=== PATIENT | male | born 1975 | race Hispanic/Latino ===

== ENCOUNTER 2017-08-06 16:53 | Inpatient (IN) | payer OTHER ==
[2017-08-06 17:04] VITALS: BMI 18.6
[2017-08-06] MEDS ORDERED: Morphine 4 MG/ML VIAL ONE (17:37)
[2017-08-06] MEDS ORDERED: Sodium Chloride 0.9% 1,000 ML IV ONE (17:40)
[2017-08-06] MEDS ORDERED: Morphine 4 MG/ML VIAL IVP ONE (17:44)
[2017-08-06] MEDS ORDERED: Sodium Chloride 0.9% 1,000 ML ONE (17:47)
[2017-08-06 17:50] LABS: BASO # 0.1 K/uL (0.0-0.2); BASO % 1.3 % (0.0-2.0); EOS # 0.1 K/uL (0.0-0.7); EOS % 0.9 % (0.0-4.0); LYMPH # 1.8 K/uL (1.0-4.3); LYMPH % 26.6 % (20.0-40.0); MEAN CORPUSCULAR HEMOGLOBIN 32.7 pg (27.0-31.0); MEAN PLATELET VOLUME 6.5 fL (7.2-11.7); MONO # 0.7 K/uL (0.0-0.8); MONO % 9.7 % (0.0-10.0); RED CELL DISTRIBUTION WIDTH 13.1 % (11.5-14.5); WHITE BLOOD COUNT 6.9 K/uL (4.8-10.8)
[2017-08-06 18:00] LABS: CHLORIDE 100 mmol/L (98-107); SODIUM 135 mmol/L (132-148)
--- NOTE | 2017-08-06 18:00 | RAD ---
PROCEDURE: CHEST RADIOGRAPH, 1 VIEW HISTORY: Seizure COMPARISON: None available. FINDINGS: LUNGS: The lungs are well inflated and clear. PLEURA: No pneumothorax or pleural fluid seen. CARDIOVASCULAR: Normal. OSSEOUS STRUCTURES: There is diffuse bone demineralization. There are old fracture deformities in the right posterior 6th and 7th ribs. VISUALIZED UPPER ABDOMEN: Normal. OTHER FINDINGS: None. IMPRESSION: No acute findings.
[2017-08-06 18:01] LABS: POTASSIUM 4.2 mmol/L (3.6-5.2)
[2017-08-06 18:03] LABS: ALB/GLOB RATIO 1.9 (1.0-2.1); ALKALINE PHOSPHATASE 69 U/L (38-126); AST/SGOT 62 U/L (17-59); BILIRUBIN,TOTAL 0.7 mg/dL (0.2-1.3); BLOOD UREA NITROGEN 6 mg/dL (9-20); CARBON DIOXIDE 14 mmol/L (22-30); GFR AFRICAN-AMERICAN > 60; TOTAL PROTEIN 7.1 g/dL (6.3-8.3)
[2017-08-06 18:04] LABS: ALCOHOL SERUM < 10 mg/dl (0-10); ALT/SGPT 58 U/L (21-72); CALCIUM 9.2 mg/dl (8.6-10.4); GLUCOSE,RANDOM 129 mg/dL (75-110)
[2017-08-06] MEDS ORDERED: Lidocaine 2% w Epi 1:100,000 Inj IJ ONE (18:04)
--- NOTE | 2017-08-06 18:05 | C.PDOC ---
History Of Present Illness 42 year old male who presents to the ER after having a seizure at work today. Patient states he has seizures monthly and note they always happened after drinking. Patient reports he drinks 4-6 beers per day and states he has tried "all antiseizure medication" but cannot tolerate any of them. Patient has had multiple evaluations for seizures and facial trauma, usually at [place]. Patient states he was drinking heavily prior to his seizure and notes he had a typical belief dejavu sensation before the seizure began. Denies nausea, vomiting, or headache. Time Seen by Provider: 08/06/17 17:07 Chief Complaint (Nursing): Seizure History Per: Patient History/Exam Limitations: no limitations Recent Seizure Activity Began: Just Before Arrival Number Of Seizures: One Length Of Seizures (Duration): Seconds Quality Of Seizure: Generalized Post-ictal Period: No Recent travel outside of the [place]: No Past Medical History Reviewed: Historical Data, Nursing Documentation, Vital Signs Vital Signs: Last Vital Signs Temp 97.6 F 08/06/17 19:36 Pulse 96 H 08/06/17 19:36 Resp 18 08/06/17 19:36 BP 111/73 08/06/17 19:36 Pulse Ox 97 08/06/17 21:33 - Medical History PMH: Seizures Surgical History: Tonsillectomy Family History: States: Unknown Family Hx - Social History Hx Alcohol Use: Yes Hx Substance Use: Yes (FREQUENT MARIJUANA USE,OCCASIONAL COCAINE USE) Review Of Systems Constitutional: Negative for: Fever, Chills Gastrointestinal: Negative for: Nausea, Vomiting Skin: Positive for: Other (Abrasions) Neurological: Positive for: Seizures. Negative for: Headache, Dizziness Physical Exam - Physical Exam Appears: Non-toxic, Other (Small stature, very thin) Skin: Warm, Dry Head: Laceration (3cm to right upper eyebrow), Other (1x1 skin avulsion to lateral aspect of right eye lid) Eye(s): bilateral: Normal Inspection Ear(s): Bilateral: Normal Oral Mucosa: Moist Chest: Symmetrical, No Tenderness Cardiovascular: Rhythm Regular, No Murmur Respiratory: Normal Breath Sounds, No Rales, No Rhonchi, No Wheezing Gastrointestinal/Abdominal: Soft, No Tenderness Extremity: Normal ROM (x4), Other (Superficial abrasions to knuckles) Neurological/Psych: Oriented x3, Normal Speech, Normal Cognition ED Course And Treatment - Laboratory Results Result Diagrams: 08/06/17 17:45 08/06/17 17:45 Lab Interpretation: Normal (neg all seizure meds.) ECG: Interpreted By Me ECG Rhythm: Sinus Rhythm ECG Interpretation: Normal Rate From EC O2 Sat by Pulse Oximetry: 97 Pulse Ox Interpretation: Normal - Radiology CXR: Interpreted by Me CXR Interpretation: Yes: No Acute Disease - CT Scan/US CT Head Other Rad Studies (CT/US): Read By Radiologist, Radiology Report Reviewed CT/US Interpretation: IMPRESSION: 1. Small parenchymal hematoma in the left frontal lobe. It appears slightly larger normal examination. done 2 hours ago. 2. Air-fluid levels noted within the maxillary sinuses bilaterally. Mucosal thickening extending into the. ethmoid and frontal sinuses. Air-fluid levels are could be due to the recent trauma. Findings suggest. underlying chronic sinus disease that could include nasal polyposis. 3. Soft tissue swelling noted over the right frontal bone. 4. Fractures demonstrated on previous CT of the maxillofacial bones not clearly seen on this. examination. CT Maxillofacial Other Rad Studies (CT/US): Read By Radiologist, Radiology Report Reviewed CT/US Interpretation: IMPRESSION: 1. Depressed fracture of the anterior wall of the right maxillary sinus with fracture involving the medial. and posterior romero of the right maxillary sinus as well. 2.Fracture of the anterior nasal spine of the maxilla. 3.Air-fluid levels noted within the maxillary sinuses bilaterally with thinning of the medial wall of the. maxillary sinuses. While these findings could be due to trauma, the thinning of the medial wall of the. maxillary sinuses bilaterally raises the possibility of underlying chronic sinus disease and nasal. polyposis. 4. Simple linear fracture through the lateral pterygoid plate on the left. 5. Mucosal thickening noted with in the frontal, ethmoid, and maxillary sinuses. 6. Gyriform hyperdensity noted within the left frontal lobe. This could represent an area of petechial. hemorrhage. Followup CT examination in 4-6 hours or MRI suggested Progress Note: EKG, urinalysis, blood work, CT head, and CT maxillofacial ordered. Ativan, Morphine, zofran, and IV fluids administered. Reevaluation Time: 21:29 Reassessment Condition: Improved - Physician Consult Information Outcome Of Conversation: 2000: d/w Dr. Stark- [facility] ok to Admit Laceration - Laceration Repair Right upper eyebrow Wound Length (In cm): 3 Description Of Wound: Linear Wound Cleansed With: Betadine, Sterile Saline Anesthesia: Lidocaine 2%, With Epi Wound Examination: Irrigated With Saline (Liberally) Wound Closure: Suture (Two) Suture Technique And Material Used: Nylon (4-0) Wound Complexity: Simple Medical Decision Making Medical Decision Making: recurrent seizure, usually with brief prodrome of robbie vu' and usually with fall from standing to impace the face. Today R nasal spine and R maxillary fx's with typical SQ air and R eyebrow lac, and small L Frontal parenchymal bleed. h/o MRSA, started on [facility] admit [facility] Disposition Doctor Will See Patient In The: Hospital Counseled Patient/Family Regarding: Studies Performed, Diagnosis - Disposition Disposition: HOME/ ROUTINE Disposition Time: 21:32 Condition: GOOD - Clinical Impression Clinical Impression: Tonic-clonic seizure, Facial fracture due to fall, Eyebrow laceration, Punctate hemorrhage of left frontal lobe - Scribe Statement The provider has reviewed the documentation as recorded by the Scribmichelle Ahuja All medical record entries made by the Scribe were at my direction and personally dictated by me. I have reviewed the chart and agree that the record accurately reflects my personal performance of the history, physical exam, medical decision making, and the department course for this patient. I have also personally directed, reviewed, and agree with the discharge instructions and disposition.
[2017-08-06 18:06] LABS: CARBAMAZEPINE < 3.0 ug/mL (4.0-12.0)
[2017-08-06 18:08] LABS: VALPROIC ACID < 10.0 ug/mL (50.0-100.0)
--- NOTE | 2017-08-06 20:42 | CT ---
EXAM: CT Maxillofacial Without Intravenous Contrast EXAM DATE/TIME: Exam ordered 08/06/2017 6:02 PM CLINICAL HISTORY: 42 years old, male; Injury or trauma and signs and symptoms; Fall; Initial encounter; Blunt trauma (contusions or hematomas); Orbit/periorbital and maxilla; Right; Other: Laceration and swelling rf facial area; Patient HX: Post seizure; Additional info: R facial contusion, S/P seizure, ? orbig/zytom TECHNIQUE: Axial computed tomography images of the face without intravenous contrast. All CT scans at this facility use one or more dose reduction techniques, viz.: automated exposure control; ma/kV adjustment per patient size (including targeted exams where dose is matched to indication; i.e. head); or iterative reconstruction technique. Coronal and sagittal reformatted images were created and reviewed. COMPARISON: No relevant prior studies available. FINDINGS: Bones/joints: There is a fracture of the medial and posterior wall of the right maxillary sinus. There is a simple linear fracture through the lateral pterygoid plate on the left. There's a depressed fracture of the anterior wall of the right maxillary sinus. Subcutaneous emphysema is noted within the pre-maxillary soft tissues. There is a fracture noted of the anterior nasal spine. There is a left-sided danny bullosa. Soft tissues: Soft tissue swelling is noted over the right frontal bone. Soft tissue swelling is noted of the right preseptal soft tissues. Orbits: Unremarkable. Sinuses: There is an air-fluid level within the left maxillary sinus. There is opacification of the right maxillary sinus with air-fluid level noted. There appears to be thinning within the medial wall of the maxillary sinuses bilaterally which could reflect underlying nasal polyposis. Soft tissue thickening is noted within the ethmoid air cells bilaterally. Soft tissue thickening extends into the frontal sinuses bilaterally. Brain: A focal area of gyriform hyperdensity is noted in the left frontal lobe (series 3 image 110). Nasopharynx: There is rightward deviation of the nasal septum. IMPRESSION: 1. Depressed fracture of the anterior wall of the right maxillary sinus with fracture involving the medial and posterior romero of the right maxillary sinus as well. 2.Fracture of the anterior nasal spine of the maxilla 3.Air-fluid levels noted within the maxillary sinuses bilaterally with thinning of the medial wall of the maxillary sinuses. While these findings could be due to trauma, the thinning of the medial wall of the maxillary sinuses bilaterally raises the possibility of underlying chronic sinus disease and nasal polyposis. 4. Simple linear fracture through the lateral pterygoid plate on the left 5. Mucosal thickening noted with in the frontal, ethmoid, and maxillary sinuses. 6. Gyriform hyperdensity noted within the left frontal lobe. This could represent an area of petechial hemorrhage. Followup CT examination in 4-6 hours or MRI suggested
--- NOTE | 2017-08-06 21:39 | CT ---
EXAM: CT Head Without Intravenous Contrast EXAM DATE/TIME: Exam ordered 08/06/2017 8:48 PM CLINICAL HISTORY: 42 years old, male; Signs and symptoms; Syncope and collapse and other: Seizure; Additional info: Fall on face, + puntate bleed frontal noted on max TECHNIQUE: Axial computed tomography images of the head/brain without intravenous contrast. All CT scans at this facility use one or more dose reduction techniques, viz.: automated exposure control; ma/kV adjustment per patient size (including targeted exams where dose is matched to indication; i.e. head); or iterative reconstruction technique. COMPARISON: No relevant prior studies available. FINDINGS: Brain: There is a small parenchymal hematoma in the left frontal lobe measuring 0.8 x 0.8 transverse and AP located just anterior to the sylvian fissure. It is slightly more conspicuous than when demonstrated on the CT of the maxillofacial bones approximately 2 hours earlier. No edema. Ventricles: Unremarkable. No ventriculomegaly. Bones/joints: A bony defect is suggested on the medial wall of the maxillary sinuses bilaterally. The fractures of the right maxillary sinus which were demonstrated on a previous exam of the maxillofacial bones are not clearly seen on this study. Soft tissues: There is a swelling of the soft tissues overlying the right frontal bone. Sinuses: There is a air-fluid level the left maxillary sinus. There is opacification of of the right maxillary sinus. Partial soft tissue opacification extends into the ethmoid air cells and the frontal sinuses. Mastoid air cells: Unremarkable as visualized. No mastoid effusion. IMPRESSION: 1. Small parenchymal hematoma in the left frontal lobe. It appears slightly larger normal examination done 2 hours ago. 2. Air-fluid levels noted within the maxillary sinuses bilaterally. Mucosal thickening extending into the ethmoid and frontal sinuses. Air-fluid levels are could be due to the recent trauma. Findings suggest underlying chronic sinus disease that could include nasal polyposis 3. Soft tissue swelling noted over the right frontal bone. 4. Fractures demonstrated on previous CT of the maxillofacial bones not clearly seen on this examination. Images were attached to this report and are available at [email or web address]
[2017-08-06 22:20] LABS: RBC URINE < 1 /hpf (0-3); URINE BILIRUBIN NEGATIVE (NEGATIVE); URINE BLOOD NEGATIVE (NEGATIVE); URINE COLOR Straw (YELLOW); URINE GLUCOSE (UA) NORMAL (Normal); URINE KETONE 1+ mg/dL (NEGATIVE); URINE LEUKOCYTE ESTERASE NEG Leu/uL (Negative); URINE PROTEIN NEGATIVE (NEGATIVE); URINE UROBILINOGEN NORMAL mg/dL (0.2-1.0); WBC URINE < 1 /hpf (0-5)
[2017-08-06] MEDS ORDERED: Bacitracin 500 Units/gm Oint Foilpak UD TOP ONE (23:27)
[2017-08-07] MEDS ORDERED: Thiamine 100 mg/ml Inj IV ONE (00:40)
[2017-08-07] MEDS: Clindamycin 300 MG in Sodium Chloride 0.9% 50 ML IVPB SCH ×4 (01:48→18:45)
--- NOTE | 2017-08-07 05:47 | CP.PCM.HP ---
<Clint Stark P - Last Filed: 08/07/17 08:25> Meds Allergies/Adverse Reactions: Allergies Allergy/AdvReac Type Severity Reaction Status Date / Time acetaminophen [From Tylenol] Allergy RASH Verified 08/06/17 17:00 amoxicillin Allergy NAUSEA Verified 08/06/17 17:00 ampicillin Allergy RASH Verified 08/06/17 17:00 erythromycin base Allergy URTICARIA Verified 08/06/17 17:00 Results - Vital Signs Recent Vital Signs: Last Vital Signs Temp 99.0 F 08/07/17 00:20 Pulse 91 H 08/07/17 00:20 Resp 20 08/07/17 00:20 BP 125/79 08/07/17 00:20 Pulse Ox 97 08/07/17 00:20 - Labs Result Diagrams: 08/06/17 17:45 08/06/17 17:45 Labs: Laboratory Results - last 24 hr 08/06/17 08/06/17 22:11 22:11 Urine Color Straw Urine Clarity Clear Urine pH 6.0 Ur Specific [place] 1.010 Urine Protein Negative Urine Glucose (UA) Normal Urine Ketones 1+ H Urine Blood Negative Urine Nitrate Negative Urine Bilirubin Negative Urine Urobilinogen Normal Ur Leukocyte Esterase Neg Urine WBC (Auto) < 1 Urine RBC (Auto) < 1 Urine Opiates Screen Positive Urine Methadone Screen Negative Ur Barbiturates Screen Negative Ur Phencyclidine Scrn Negative Ur Amphetamines Screen Negative U Benzodiazepines Scrn Negative U Oth Cocaine Metabols Negative U Cannabinoids Screen Negative Attending/Attestation - Attestation I have personally seen and examined this patient.: Yes I have fully participated in the care of the patient.: Yes I have reviewed all pertinent clinical information: Yes Notes (Text): Assessment * H/o seizures with h/o alcoholism probably related but due to frequent recurrence once every 2-3 months, will benefit with seizure medication, but patient has not been taking due to depression he gets from seizure meds * Alcoholism about 6 beers/day, with some binging * Possible underlying depression * Right maxillary sinus fracture, nasal process fracture, brain contusion * Brain contusion Plan * Neurology consult * Psych consult * Repeat Ct due contusion * Case will be discussed with OM surgery * Empiric clindamycin for laceration sinus fracture * Thiamine, mvt, fa, librium, prn ativan * Avoid heparin due to brain contusion * See orders for detail <Jean CarlosLazaroAda - Last Filed: 08/07/17 22:12> History of Present Illness - History of Present Illness History of Present Illness: HPI: Pt is a 42M with PMH alcohol abuse and seizures who presents to the ED for seizure. Patient says he was at work when he felt a feeling of robbie vu and then had a seizure. Patient says he had a lot to drink the night before. Patient says he has had seizures in the past after a night of binge drinking. Patient was started on an antiseizure medication 5-6 years ago that he cannot remember the name of but stopped taking it because he says it made him feel depressed. Patient says when he fell this time he hit his face, cut his forehead, and scraped his hands. Patient says he has some generalized muscle aches but denies any other pain in back, neck and extremities. Patient denies CARDONA, F/C, AP/N/V/D/C , CP/SOB. PMH: alcohol abuse, seizures Rx: denies PSH: tonsilectomy, wisdom teeth Allergies: acetaminophen, amoxicillin, ampicillin, erythromycin FamHx: denies SocHx: Smokes 1/2 PPD x15 yrs, occasional marijuana use, history of cocaine use , heavy alcohol use (6 bottles beer/day) Present on Admission - Present on Admission Any Indicators Present on Admission: No Past Patient History - Infectious Disease Hx of Infectious Diseases: None - Past Medical History & Family History Past Medical History?: Yes - Past Social History Smoking Status: Current Some Days Smoker - CARDIAC Hx Cardiac Disorders: No - PULMONARY Hx Respiratory Disorders: No - NEUROLOGICAL Hx Seizures: Yes - HEENT Hx HEENT Problems: No - RENAL Hx Chronic Kidney Disease: No - ENDOCRINE/METABOLIC Hx Endocrine Disorders: No - HEMATOLOGICAL/ONCOLOGICAL Hx Human Immunodeficiency Virus (HIV): No - INTEGUMENTARY Hx Dermatological Problems: No - MUSCULOSKELETAL/RHEUMATOLOGICAL Hx Falls: Yes - GASTROINTESTINAL Hx Gastrointestinal Disorders: No - GENITOURINARY/GYNECOLOGICAL Hx Genitourinary Disorders: No - PSYCHIATRIC Hx Substance Use: Yes - SURGICAL HISTORY Hx Tonsillectomy: Yes - ANESTHESIA Hx Anesthesia: Yes Hx Anesthesia Reactions: No Hx Malignant Hyperthermia: No Physical Exam - Constitutional Appears: Non-toxic, No Acute Distress - Head Exam Additional comments: 3 cm laceration to right upper eyebrow, closed with sutures. Right eye ecchymosis. Skin avulsion of right eyelid. - Eye Exam Eye Exam: EOMI, Periorbital swelling (right), Periorbital tenderness (right) - ENT Exam ENT Exam: Mucous Membranes Moist - Respiratory Exam Respiratory Exam: Clear to Auscultation Bilateral, NORMAL BREATHING PATTERN. absent: Wheezes, Respiratory Distress - Cardiovascular Exam Cardiovascular Exam: REGULAR RHYTHM, +S1, +S2. absent: Systolic Murmur - GI/Abdominal Exam GI & Abdominal Exam: Normal Bowel Sounds, Soft. absent: Distended, Tenderness - Extremities Exam Extremities exam: Negative for: joint swelling, pedal edema, tenderness Additional comments: abrasion of dorsal aspect of left hand and over MCP joints of right hand - Neurological Exam Neurological exam: Alert Additional comments: Tremor noted with cerebellar [id number] testing. - Psychiatric Exam Psychiatric exam: Normal Affect, Normal Mood - Skin Skin Exam: Dry, Intact, Warm Results - Vital Signs Recent Vital Signs: Last Vital Signs Temp 99.0 F 08/07/17 00:20 Pulse 91 H 08/07/17 00:20 Resp 20 08/07/17 00:20 BP 125/79 08/07/17 00:20 Pulse Ox 97 08/07/17 00:20 - Labs Result Diagrams: 08/07/17 08:19 08/07/17 08:19 Labs: Laboratory Results - last 24 hr 08/06/17 08/06/17 22:11 22:11 Urine Color Straw Urine Clarity Clear Urine pH 6.0 Ur Specific [place] 1.010 Urine Protein Negative Urine Glucose (UA) Normal Urine Ketones 1+ H Urine Blood Negative Urine Nitrate Negative Urine Bilirubin Negative Urine Urobilinogen Normal Ur Leukocyte Esterase Neg Urine WBC (Auto) < 1 Urine RBC (Auto) < 1 Urine Opiates Screen Positive Urine Methadone Screen Negative Ur Barbiturates Screen Negative Ur Phencyclidine Scrn Negative Ur Amphetamines Screen Negative U Benzodiazepines Scrn Negative U Oth Cocaine Metabols Negative U Cannabinoids Screen Negative Assessment & Plan - Assessment and Plan (Free Text) Assessment: Tonic Clonic Seizure 2/2 alcohol withdrawal * Maxillofacial CT: Depressed fracture of the anterior wall of the right maxillary sinus with fracture involving the medial and posterior romero of the right maxillary sinus. Fracture of the anterior nasal spine of the maxilla. Air- fluid levels within maxillary sinuses bilaterally with thinning of the medial wall of the maxillary sinuses (trauma or underlying chronic sinus disease and nasal polyposis). Simple linear fracture through the lateral pterygoid plate on the left. Mucosal thickening noted with in the frontal, ethmoid, and maxillary sinuses. Gyriform hyperdensity noted within the left frontal lobe (poss petechial hemorrhage). * Head CT: Small parenchymal hematoma in the left frontal lobe. It appears slightly larger normal examination done 2 hours ago. Air-fluid levels noted within the maxillary sinuses bilaterally. Mucosal thickening extending into the ethmoid and frontal sinuses. Air-fluid levels. Soft tissue swelling noted over the right frontal bone. * F/U Repeat head CT in morning (08/07) * Neuro Consult (Shirley) - recs appreciated * Psych consult (Jud) - recs appreciated * Seizure precautions * Librium 25 mg PO TID, Folic acid 1 mg PO QD, Ativan 1 mg IV Q3H PRN, Thiamine 100 mg PO QD, Multivitamin QD Laceration of right eyebrow * Clindamycin 300 mg IV q6 * wound care Prophylaxis * SCDs
[2017-08-07 08:37] LABS: BASO # 0.1 K/uL (0.0-0.2); BASO % 0.9 % (0.0-2.0); EOS % 0.5 % (0.0-4.0); HEMATOCRIT 37.6 % (35.0-51.0); LYMPH # 1.2 K/uL (1.0-4.3); LYMPH % 18.1 % (20.0-40.0); MEAN CORPUSCULAR HEMOGLOBIN 32.9 pg (27.0-31.0); MEAN PLATELET VOLUME 6.6 fL (7.2-11.7); MONO # 0.9 K/uL (0.0-0.8); MONO % 13.9 % (0.0-10.0); WHITE BLOOD COUNT 6.8 K/uL (4.8-10.8)
[2017-08-07 08:52] LABS: ALB/GLOB RATIO 1.4 (1.0-2.1); ALKALINE PHOSPHATASE 61 U/L (38-126); ALT/SGPT 48 U/L (21-72); AST/SGOT 47 U/L (17-59); BLOOD UREA NITROGEN 7 mg/dL (9-20); CALCIUM 9.2 mg/dl (8.6-10.4); CARBON DIOXIDE 24 mmol/L (22-30); CHLORIDE 100 mmol/L (98-107); GFR AFRICAN-AMERICAN > 60; GLUCOSE,RANDOM 82 mg/dL (75-110); PHOSPHOROUS 4.2 mg/dL (2.5-4.5); POTASSIUM 3.8 mmol/L (3.6-5.2); SODIUM 138 mmol/L (132-148); TOTAL PROTEIN 6.2 g/dL (6.3-8.3)
[2017-08-07] MEDS: Multiple Vitamins Tab PO SCH (09:37)
--- NOTE | 2017-08-07 09:51 | CT ---
PROCEDURE: CT HEAD WITHOUT CONTRAST. HISTORY: f/u, hemorrhagic contusion COMPARISON: 08/06/2017 TECHNIQUE: Axial computed tomography images were obtained through the head/brain without intravenous contrast. Radiation dose: Total exam DLP = 896.14 mGy-cm. This CT exam was performed using one or more of the following dose reduction techniques: Automated exposure control, adjustment of the mA and/or kV according to patient size, and/or use of iterative reconstruction technique. FINDINGS: HEMORRHAGE: Punctate focal hemorrhage in the left frontal lobe anterior to the sylvian fissure. No other parenchymal hemorrhage identified elsewhere. No extra-axial hemorrhage identified. The extent of this hemorrhage is unchanged compared to the prior head CT examination. BRAIN: No mass effect or edema. No atrophy or chronic microvascular ischemic changes. VENTRICLES: Unremarkable. No hydrocephalus. CALVARIUM: No fracture. There is right facial soft tissue swelling likely posttraumatic, involving the inferior and superior palpebrum as well as right frontal scalp soft tissue. PARANASAL SINUSES: Mucoperiosteal thickening and air-fluid levels in both maxillary antra. Concerning for acute on chronic sinusitis. Chronic ethmoid sinusitis noted. Minimal chronic sphenoid sinusitis. MASTOID AIR CELLS: Unremarkable as visualized. No inflammatory changes. OTHER FINDINGS: None. IMPRESSION: Punctate parenchymal hemorrhage in left frontal lobe unchanged in extent from 08/06/2017. No extra-axial hemorrhage. Findings concerning for acute on chronic bilateral maxillary sinusitis. Chronic ethmoid and sphenoid sinusitis. Right facial/frontal scalp soft tissue swelling.
--- NOTE | 2017-08-07 10:18 | CP.PCM.PN ---
Subjective - Date & Time of Evaluation Date of Evaluation: 08/07/17 Time of Evaluation: 10:00 - Subjective Subjective: Patient was seen and examined by me. He asked to go home today however his right face has extensive echymosis and swelling. He denied vision changes, denied headache, denied light headedness. He was on exam able to stand up and walk with me on exam and he was able to walk into the hallway and to the nurses station without assistance. Gait was very stable. He had a repeat head CT which showed no changes in the size of the contusion that was seen. As mentioned previously he had a maxillary facial CT showing a fracture of the anterior wall of the right maxillary sinus and a fracture of the medial and posterior romero of the right maxillary sinus and fracture of the anterior nasal spine of the maxilla. He says it feels swollen but that the pain was controlled. He reports drinking every day - he denied that there was any association of his alcohol causing him to have siezures. He said he thought these were unrelated despite my concerns about his alcohol intake. He has orders for librium as well as ativan. He also reports he does NOT want to take seizure medications since he feels it makes him feel leathergic and depressed. He wants to go home soon. Objective - Vital Signs/Intake and Output Vital Signs (last 24 hours): Temp Pulse Resp BP Pulse Ox 98.1 F 76 20 114/66 96 08/07/17 08:49 08/07/17 08:49 08/07/17 08:49 08/07/17 08:49 08/07/17 08:49 - Medications Medications: Current Medications Chlordiazepoxide (Librium) 25 mg PO TID [facility] Last Admin: 08/07/17 09:31 Dose: Not Given Folic Acid (Folic Acid) 1 mg PO DAILY [facility] Last Admin: 08/07/17 09:37 Dose: 1 mg Clindamycin Phosphate 300 mg/ (Sodium Chloride) 52 mls @ 100 mls/hr IVPB Q6H [facility] Last Admin: 08/07/17 06:21 Dose: 100 mls/hr Lorazepam (Ativan) 1 mg IVP Q3H PRN PRN Reason: Anxiety Multivitamins (Hexavitamin) 1 tab PO DAILY [facility] Last Admin: 08/07/17 09:37 Dose: 1 tab Pneumococcal Polyvalent Vaccine (Pneumovax 23 Vaccine) 0.5 ml IM .ONCE ONE Stop: 08/08/17 10:01 Thiamine HCl (Vitamin B1 Tab) 100 mg PO DAILY [facility] Last Admin: 08/07/17 09:37 Dose: 100 mg - Labs Labs: 08/07/17 08:19 08/07/17 08:19 - Constitutional Appears: No Acute Distress, Unkempt, Chronically Ill - Head Exam Head Exam: absent: ATRAUMATIC, NORMAL INSPECTION, NORMOCEPHALIC Additional comments: S/P fall with 4 x 4s over the swollen area of his right upper maxillary and sabianist area - Eye Exam Eye Exam: EOMI, Periorbital swelling Pupil Exam: NORMAL ACCOMODATION, PERRL - ENT Exam ENT Exam: Mucous Membranes Moist - Respiratory Exam Respiratory Exam: Clear to Ausculation Bilateral, NORMAL BREATHING PATTERN - Cardiovascular Exam Cardiovascular Exam: REGULAR RHYTHM - GI/Abdominal Exam GI & Abdominal Exam: Soft, Normal Bowel Sounds - Neurological Exam Neurological Exam: Alert, Awake, CN II-XII Intact, Oriented x3 Neuro motor strength exam: Left Upper Extremity: 5, Right Upper Extremity: 5, Left Lower Extremity: 5, Right Lower Extremity: 5 - Psychiatric Exam Psychiatric exam: Depressed, Flat Affect - Skin Skin Exam: Normal Color, Warm Assessment and Plan - Assessment and Plan (Free Text) Assessment: Tonic 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 Continue with Librium as well as Ativan PRN. We need to monitor his vision of the right eye as it does have pamela-orbital swelling from his fall. He denies blurry vision when I saw him this morning. Monitor for changes. The repeat CT of the head shows that the parahymal area hematoma has NOT changed. * Maxillofacial CT: Depressed fracture of the anterior wall of the right maxillary sinus with fracture involving the medial and posterior romero of the right maxillary sinus. Fracture of the anterior nasal spine of the maxilla. Air- fluid levels within maxillary sinuses bilaterally with thinning of the medial wall of the maxillary sinuses (trauma or underlying chronic sinus disease and nasal polyposis). Simple linear fracture through the lateral pterygoid plate on the left. Mucosal thickening noted with in the frontal, ethmoid, and maxillary sinuses. Gyriform hyperdensity noted within the left frontal lobe (poss petechial hemorrhage). * Head CT: Small parenchymal hematoma in the left frontal lobe. It appears slightly larger normal examination done 2 hours ago. Air-fluid levels noted within the maxillary sinuses bilaterally. Mucosal thickening extending into the ethmoid and frontal sinuses. Air-fluid levels. Soft tissue swelling noted over the right frontal bone. * F/U Repeat head CT in morning (08/07) * Neuro Consult (Shirley) - recs appreciated * Psych consult (Jud) - recs appreciated * Seizure precautions * Librium 25 mg PO TID, Folic acid 1 mg PO QD, Ativan 1 mg IV Q3H PRN, Thiamine 100 mg PO QD, Multivitamin QD Laceration of right eyebrow * Clindamycin 300 mg IV q6 * wound care Prophylaxis * SCDs
--- NOTE | 2017-08-07 11:08 | PCM.PSYCH ---
Initial Psychiatric Evaluation - Initial Psychiatric Evaluation Type of Admission: Voluntary Legal Status: Capacity Chief Complaint (in patient's own words): "I'm not feeling well" History of Present Illness and Precipitating Events: The patient is seen, chart reviewed and case discussed. Consultation is requested to rule out depression. 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 The patient is here for seizures which started about 6 years ago. He admits to feeling down, self-esteem is so-so, sleeps "very bad" and he also reports lots of anxiety, anhedonia and he had some suicidal thoughts recently. However, he currently denies feeling suicidal and is future oriented and more optimistic. 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 On top of that, he has other stressors, such as financial issues, relational issues, occupational issues. He drinks 5-6 cans a day alcohol since teenage years and has some withdrawal symptoms when he doesn't. He has never been in treatment. He smokes half pack per day cigarettes and occasionally marijuana. He reports worrying a lot but no psychotic or manic symptoms elicited. Past psych history: Denies Family psych history: Cousin had severe depression. Medical history: Seizure disorder Current Medications: Active Medications Generic Name Dose Route Start Last Admin Trade Name Freq PRN Reason Stop Dose Admin Escitalopram Oxalate 5 mg 08/07/17 11:15 Lexapro PO DAILY [facility] Folic Acid 1 mg 08/07/17 10:00 08/07/17 09:37 Folic Acid PO 1 mg DAILY [facility] Administration Gabapentin 300 mg 08/07/17 11:15 Neurontin PO BID [facility] Clindamycin Phosphate 300 mg/ 52 mls @ 100 mls/hr 08/07/17 00:45 08/07/17 06: 21 Sodium Chloride IVPB 100 mls/hr Q6H [facility] Administration Lorazepam 1 mg 08/07/17 00:40 Ativan IVP Q3H PRN Anxiety Multivitamins 1 tab 08/07/17 10:00 08/07/17 09:37 Hexavitamin PO 1 tab DAILY [facility] Administration Pneumococcal Polyvalent Vaccine 0.5 ml 08/08/17 10:00 Pneumovax 23 Vaccine IM 08/08/17 10:01 .ONCE ONE Thiamine HCl 100 mg 08/07/17 10:00 08/07/17 09:37 Vitamin B1 Tab PO 100 mg DAILY [facility] Administration Past Psychiatric History - Past Psychiatric History Previous Treatment History: None Pertinent Medical Hx (Current Medical&Sleep Prob, Allergies): Allergies Allergy/AdvReac Type Severity Reaction Status Date / Time acetaminophen [From Tylenol] Allergy RASH Verified 08/06/17 17:00 amoxicillin Allergy NAUSEA Verified 08/06/17 17:00 ampicillin Allergy RASH Verified 08/06/17 17:00 erythromycin base Allergy URTICARIA Verified 08/06/17 17:00 No Known Home Med 08/06/17 Review of Systems - Neurological Neurological: Tremor - Psychiatric Psychiatric: Abnormal Sleep Pattern, Anhedonia, Anxiety, Depression. absent: Hallucinations, Homicidal Ideation, Paranoia, Suicidal Ideation Mental Status Examination - Personal Presentation Personal Presentation: Looks stated age - Affect Affect: Constricted - Motor Activity Motor Activity: Calm - Reliability in Providing Information Reliability in Providing Information: Good - Speech Speech: Organized - Mood Mood: Depressed, Anxious - Formal Thought Process Formal Thought Process: No Impairment - Cognitive Functions Orientation: Person, Place, Situation, Time Sensorium: Alert Attention/Concentration: Attentive Estimate of Intelligence: Average Judgement: Intact, as evidence by: Insight regarding need for hospitalization Memory: Recent intact, as evidence by: Ability to recall events of the day, Remote intact, as evidenced by: Abilit to recall sig. life events - Risk Risk: Withdrawal, Diminished functioning - Strength & Assets Inventory Strength & Assets Inventory: Cooperative - Limitations Limitations: Living alone, Other DSM 5 DX - DSM 5 DSM 5 Diagnosis: Major depression, recurrent, moderate CINTHIA Alcohol use disorder, moderate Cannabis use disorder, mild Tobacco use disorder, mild - Recommended/Plan of Treatment Treatment Recommendations and Plan of Treatment: Start low-dose Lexapro Gabapentin for anxiety Short Librium detox Vitamins and as needed medications Attend groups and activities Individual therapy Psychoeducation and support Encourage compliance with meds and after care Refer to outpatient program at [facility] Teach healthy lifestyle methods, i.e. diet, exercise, meditation Smoking cessation 32 min - Smoking Cessation Smoking Cessation Initiated: Yes
--- NOTE | 2017-08-08 00:28 | CON ---
NEUROLOGY CONSULTATION REPORT REASON FOR CONSULTATION: Seizures. HISTORY OF PRESENT ILLNESS: The patient is a 42-year-old male who was brought in after he had a seizure. The patient apparently said he was at work when he had a feeling of robbie vu and then after that he had a seizure. The patient apparently was drinking a lot of alcohol the night before. The patient has seizures in the past before as well. He is not on any antiepileptic medication. He apparently had workup done in the past procedures. REVIEW OF SYSTEMS: Positive for headache and facial pain. Denies any chest pain, shortness of breath, abdominal pain, constipation, diarrhea, dysuria, cough, or sputum production. PAST MEDICAL HISTORY: Include alcohol abuse, seizures. MEDICATIONS AT HOME: None. ALLERGIES: ACETAMINOPHEN, AMOXICILLIN, ERYTHROMYCIN. SOCIAL HISTORY: He does smoke cigarettes, does drink alcohol. Denies use of illicit drugs. FAMILY HISTORY: Reviewed and noncontributory to the case. PHYSICAL EXAMINATION: GENERAL: The patient is a middle-age male lying on the bed, in no acute distress. VITAL SIGNS: His blood pressure is 114/66, heart rate is 76 per minute, breathing at the rate of 16 per minute, temperature is 98.1 degree Fahrenheit. HEENT: Head is normocephalic. Positive ecchymosis around the right eye. Positive facial swelling of the right eye. NECK: Supple. There are no carotid bruit. LUNGS: Clear. CVS: S1 and S2 audible. No murmurs. ABDOMEN: Soft, nontender. Bowel sounds are present. NEUROLOGY: Mental Status: The patient was awake and alert, oriented to time, place, and person. Speech is fluent. Naming and repetition are normal. Memory and cognition are intact. Cranial Nerve Examination: Pupils are 3 mm bilaterally, reactive to light. Visual mae are full. Extraocular movements are intact. There is no facial asymmetry. Palate is upgoing bilaterally and tongue is midline. Motor Examination: Tone is normal. Power is 5/5 bilaterally, and all extremity reflexes +1 and symmetrical. Plantars downgoing bilaterally. Cerebellar examination: [id number] shows no dysmetria. Gait is deferred at the moment. LABORATORY DATA: Reviewed shows WBC of 6.8, hemoglobin is 13.1, hematocrit 37.6, and platelets of 195. His sodium is 138, potassium 3.8, chloride 100, carbon dioxide 24, BUN of 7, creatinine 0.8, and glucose of 82. His urine toxicology is positive for opiates. He had a CT scan of the head done which showed punctate parenchymal hemorrhage in the left frontal lobe finding concerning for acute on chronic bilateral maxillary sinusitis, right facial/frontal scalp swelling. He has CT of the maxillofacial bone which showed depressed fracture of the anterior wall of the right maxillary sinus with fracture involving the medial and posterior wall of the right maxillary sinus. IMPRESSION: 1. Seizures which appears secondary to be alcohol related. 2. Questionable small punctate left frontal hemorrhage. 3. Right maxillary bone fracture. RECOMMENDATIONS: 1. The patient to have MRI of the brain without contrast. 2. The patient also to have an electroencephalogram. 3. No antiepileptic medication is indicated as this appears to be secondary to alcohol related. 4. The patient to be continued on thiamine and multivitamin. 5. The patient to be continued on Ativan for alcohol withdrawal symptoms. 6. Please continue other treatment and supportive care. Thank you for the opportunity to participate in the care of this patient. Migdalia Watson MD
[2017-08-08] MEDS: Clindamycin 300 MG in Sodium Chloride 0.9% 50 ML IVPB SCH ×4 (01:31→18:03)
[2017-08-08 07:33] LABS: BASO # 0.1 K/uL (0.0-0.2); BASO % 0.9 % (0.0-2.0); EOS # 0.1 K/uL (0.0-0.7); EOS % 1.9 % (0.0-4.0); HEMATOCRIT 38.5 % (35.0-51.0); LYMPH # 1.4 K/uL (1.0-4.3); LYMPH % 23.9 % (20.0-40.0); MEAN CELL VOLUME 93.9 fL (80.0-94.0); MEAN CORPUSCULAR HEMOGLOBIN 32.4 pg (27.0-31.0); MEAN CORPUSCULAR HGB CONC 34.4 g/dL (33.0-37.0); MEAN PLATELET VOLUME 6.6 fL (7.2-11.7); MONO # 0.8 K/uL (0.0-0.8); MONO % 13.3 % (0.0-10.0); WHITE BLOOD COUNT 5.9 K/uL (4.8-10.8)
[2017-08-08 07:57] LABS: ALB/GLOB RATIO 1.4 (1.0-2.1); ALKALINE PHOSPHATASE 56 U/L (38-126); ALT/SGPT 46 U/L (21-72); AST/SGOT 37 U/L (17-59); BLOOD UREA NITROGEN 7 mg/dL (9-20); CALCIUM 9.1 mg/dl (8.6-10.4); CARBON DIOXIDE 24 mmol/L (22-30); CHLORIDE 99 mmol/L (98-107); GFR AFRICAN-AMERICAN > 60; GLUCOSE,RANDOM 86 mg/dL (75-110); MAGNESIUM 1.8 mg/dL (1.6-2.3); PHOSPHOROUS 4.1 mg/dL (2.5-4.5); POTASSIUM 3.5 mmol/L (3.6-5.2); SODIUM 134 mmol/L (132-148)
--- NOTE | 2017-08-08 09:24 | CP.PCM.PN ---
Subjective - Date & Time of Evaluation Date of Evaluation: 08/08/17 Time of Evaluation: 09:00 - Subjective Subjective: Patient did not have any acute changes overnight. He reported the only thing really bothering him was his teeth bilaterally upper molars. He explained they felt fine the previous day and also before the fall. He reports it is painful when he tries to eat solid food. No difficulty with liquids. Will add pain medication Today per inspection of his face he said his vision was fine, denied blurry vision. Right maxillary and facial area still swollen. + tenderness when he lays on it. Neurology has ordered an MRI of the brain. Like previous day he reported walking is ok, bathroom is ok. With reguards to the history of heavy alcohol use he reported he did not feel tremulous, did not feel anxious, did not have nausea or vomiting - I explain to him that should he feel anxious or tremulous that there are PRN ativan order available. Objective - Vital Signs/Intake and Output Vital Signs (last 24 hours): Temp Pulse Resp BP Pulse Ox 98.3 F 59 L 17 111/66 98 08/08/17 08:10 08/08/17 08:10 08/08/17 08:10 08/08/17 08:10 08/08/17 08:10 - Medications Medications: Current Medications Chlordiazepoxide (Librium) 25 mg PO TID [facility] PRN Reason: Taper Stop: 08/10/17 11:59 Last Admin: 08/07/17 17:32 Dose: 25 mg Escitalopram Oxalate (Lexapro) 5 mg PO DAILY [facility] Last Admin: 08/07/17 12:31 Dose: 5 mg Folic Acid (Folic Acid) 1 mg PO DAILY [facility] Last Admin: 08/07/17 09:37 Dose: 1 mg Gabapentin (Neurontin) 300 mg PO BID [facility] Last Admin: 08/07/17 17:32 Dose: 300 mg Clindamycin Phosphate 300 mg/ (Sodium Chloride) 52 mls @ 100 mls/hr IVPB Q6H [facility] Last Admin: 08/08/17 05:45 Dose: 100 mls/hr Lorazepam (Ativan) 1 mg IVP Q3H PRN PRN Reason: Anxiety Multivitamins (Hexavitamin) 1 tab PO DAILY [facility] Last Admin: 08/07/17 09:37 Dose: 1 tab Pneumococcal Polyvalent Vaccine (Pneumovax 23 Vaccine) 0.5 ml IM .ONCE ONE Stop: 08/09/17 10:01 Thiamine HCl (Vitamin B1 Tab) 100 mg PO DAILY [facility] Last Admin: 08/07/17 09:37 Dose: 100 mg - Labs Labs: 08/08/17 07:26 08/08/17 07:26 - Constitutional Appears: No Acute Distress, Unkempt, Chronically Ill - Head Exam Additional comments: S/P fall. As mentioned previously right maxillary area and pre - orbital area are swollen. It does not affect his vision. Ecyhomis predominaly on the right side. - Eye Exam Eye Exam: EOMI, Normal appearance, Periorbital swelling, Periorbital tenderness Pupil Exam: NORMAL ACCOMODATION, PERRL - ENT Exam ENT Exam: Mucous Membranes Moist - Respiratory Exam Respiratory Exam: Clear to Ausculation Bilateral, NORMAL BREATHING PATTERN - Cardiovascular Exam Cardiovascular Exam: REGULAR RHYTHM - GI/Abdominal Exam GI & Abdominal Exam: Soft, Normal Bowel Sounds - Neurological Exam Neurological Exam: Alert, Awake, Oriented x3 Neuro motor strength exam: Left Upper Extremity: 5, Right Upper Extremity: 5, Left Lower Extremity: 5, Right Lower Extremity: 5 - Psychiatric Exam Psychiatric exam: Depressed, Flat Affect - Skin Skin Exam: Pallor, Warm Assessment and Plan - Assessment and Plan (Free Text) Assessment: Tonic Clonic Seizure 2/2 alcohol withdrawal 08/08: No acute events overnight. He is able to ambulate ok, not tremulous and not having vision changes on the side of his fall. There is an MRI ordered by neurology. 08/07: He is eager to go home, however I explained to him that it would be better to at least wait another day. Continue with Librium as well as Ativan PRN. We need to monitor his vision of the right eye as it does have pamela-orbital swelling from his fall. He denies blurry vision when I saw him this morning. Monitor for changes. The repeat CT of the head shows that the parahymal area hematoma has NOT changed. * Maxillofacial CT: Depressed fracture of the anterior wall of the right maxillary sinus with fracture involving the medial and posterior romero of the right maxillary sinus. Fracture of the anterior nasal spine of the maxilla. Air- fluid levels within maxillary sinuses bilaterally with thinning of the medial wall of the maxillary sinuses (trauma or underlying chronic sinus disease and nasal polyposis). Simple linear fracture through the lateral pterygoid plate on the left. Mucosal thickening noted with in the frontal, ethmoid, and maxillary sinuses. Gyriform hyperdensity noted within the left frontal lobe (poss petechial hemorrhage). * Head CT: Small parenchymal hematoma in the left frontal lobe. It appears slightly larger normal examination done 2 hours ago. Air-fluid levels noted within the maxillary sinuses bilaterally. Mucosal thickening extending into the ethmoid and frontal sinuses. Air-fluid levels. Soft tissue swelling noted over the right frontal bone. * Neuro Consult (Shirley) - recs appreciated * Psych consult (Jud) - recs appreciated * Seizure precautions * Librium 25 mg PO TID, Folic acid 1 mg PO QD, Ativan 1 mg IV Q3H PRN, Thiamine 100 mg PO QD, Multivitamin QD Laceration of right eyebrow * Clindamycin 300 mg IV q6 * wound care Prophylaxis * SCDs
[2017-08-08] MEDS ORDERED: Pneumococcal 23-Valent Vaccine IM ONE (10:00)
[2017-08-08] MEDS: Multiple Vitamins Tab PO SCH (10:45)
--- NOTE | 2017-08-08 14:30 | PCM.PYCHPN ---
Psychiatric Progress Note - Psychiatric Progress Note Patient seen today, length of contact: 16 min Patient Chief Complaint: "I'm better" Problems Identified/Issues Discussed: The pt is seen, chart reviewed, case discussed with staff. The pt is compliant with medications and reports no side-effects. Symptoms are improving but needs more time to stabilize. After care discussed, support and psychoeducation given. Medication Change: Yes (lexapro increased) Medical Record Reviewed: Yes Mental Status Examination - Cognitive Function Orientation: Person, Place, Situation, Time Memory: Intact Attention: WNL Concentration: WNL Association: WNL Fund of Knowledge: WNL - Mood Mood: Depressed, Anxious - Affect Affect: Constricted - Speech Speech: Appropriate - Formal Thought Process Formal Thought Process: No Impairment - Suicidal Ideation Suicidal Ideation: No - Homicidal Ideation Homicidal Ideation: No Goal/Treatment Plan - Goal/Treatment Plan Need for Continued Stay: Discharge may exacerbated symptoms, Severe functional impairment Progress Toward Problem(s) and Goals/Treatment Plan: Started Lexapro Gabapentin for anxiety Short Librium detox Vitamins and as needed medications Attend groups and activities Individual therapy Psychoeducation and support Encourage compliance with meds and after care Refer to outpatient program at [facility] Teach healthy lifestyle methods, i.e. diet, exercise, meditation Smoking cessation
[2017-08-08] MEDS: oxyCODONE 10 mg Immediate Release Tab PO PRN (18:02)
--- NOTE | 2017-08-08 20:02 | PN ---
SUBJECTIVE: The patient is lying on the bed, in no acute distress, complains of pain in the right side of the face and having difficulty with chewing because of the pain. PHYSICAL EXAMINATION: VITAL SIGNS: His blood pressure is 116/70, heart rate is 65 per minute, breathing at the rate of 16 per minute, temperature is 98.3 degrees Fahrenheit. HEENT: Head is normocephalic. Positive periorbital ecchymosis noted on the right side. Positive facial swelling. NECK: Supple. There are no carotid bruits. LUNGS: Clear. CARDIOVASCULAR: S1 and S2 audible. No murmurs. ABDOMEN: Soft, nontender. Bowel sounds are present. NEUROLOGIC: Mental Status: The patient is awake and alert, oriented to time, place and person. Speech is fluent. Naming and repetition are normal. Memory and cognition are intact. Cranial Nerve Examination: Pupils are 4 mm bilaterally, reactive to light. Visual mae are full. Extraocular movements are intact. There is no facial asymmetry. Palate is upgoing bilaterally and tongue is midline. Motor Examination: Tone is normal; power is 5/5 bilaterally in all extremities. Gait is deferred at the moment. IMPRESSION: 1. New-onset seizure which appears to be secondary to alcohol. 2. Questionable small punctate and left frontal hemorrhage. 3. Right maxillary bone fracture. RECOMMENDATIONS: 1. The patient had no further seizure. 2. The patient to have MRI of the brain without contrast. 3. The patient also to have an electroencephalogram. 4. The patient continues to be on Librium. 5. Please continue the treatment and supportive care. Thank you for the opportunity to participate in the care of this patient. Migdalia Watson MD
[2017-08-09] MEDS: Clindamycin 300 MG in Sodium Chloride 0.9% 50 ML IVPB SCH ×4 (00:57→17:59)
[2017-08-09 08:24] LABS: BASO # 0.1 K/uL (0.0-0.2); BASO % 1.1 % (0.0-2.0); EOS # 0.2 K/uL (0.0-0.7); EOS % 3.2 % (0.0-4.0); LYMPH # 1.4 K/uL (1.0-4.3); MEAN CELL VOLUME 94.5 fL (80.0-94.0); MEAN CORPUSCULAR HEMOGLOBIN 32.4 pg (27.0-31.0); MEAN CORPUSCULAR HGB CONC 34.3 g/dL (33.0-37.0); MEAN PLATELET VOLUME 6.6 fL (7.2-11.7); MONO # 0.7 K/uL (0.0-0.8); MONO % 14.2 % (0.0-10.0); RED CELL DISTRIBUTION WIDTH 12.8 % (11.5-14.5); WHITE BLOOD COUNT 4.9 K/uL (4.8-10.8)
[2017-08-09 08:37] LABS: ALB/GLOB RATIO 1.5 (1.0-2.1); ALKALINE PHOSPHATASE 49 U/L (38-126); ALT/SGPT 41 U/L (21-72); AST/SGOT 25 U/L (17-59); BILIRUBIN,TOTAL 0.5 mg/dL (0.2-1.3); BLOOD UREA NITROGEN 9 mg/dL (9-20); CALCIUM 8.9 mg/dl (8.6-10.4); CARBON DIOXIDE 24 mmol/L (22-30); CHLORIDE 100 mmol/L (98-107); GFR AFRICAN-AMERICAN > 60; GLUCOSE,RANDOM 83 mg/dL (75-110); MAGNESIUM 1.8 mg/dL (1.6-2.3); PHOSPHOROUS 4.1 mg/dL (2.5-4.5); POTASSIUM 3.6 mmol/L (3.6-5.2); SODIUM 135 mmol/L (132-148); TOTAL PROTEIN 5.7 g/dL (6.3-8.3)
[2017-08-09] MEDS ORDERED: Pneumococcal 23-Valent Vaccine IM ONE (10:00)
--- NOTE | 2017-08-09 10:01 | CP.PCM.PN ---
<Ada Evangelista - Last Filed: 08/09/17 18:10> Subjective - Date & Time of Evaluation Date of Evaluation: 08/09/17 Time of Evaluation: 10:01 - Subjective Subjective: Patient is a 42yo male with a past medical history of alcohol abuse and seizures who was admitted for an alcohol-related seizure. Patient was seen and examined at bedside and complains of facial pain which he rates an 8-9/10. He states that he is not feeling well and that the pain is in his entire face, gums , and teeth. He says that he is unable to eat because of the pain but states that he slept fine. He also mentioned having dark-colored (orange) urine. He denies having any seizures overnight, dizziness, or muscle aches. ROS: General: (-) Fever or chills HEENT: (-) CARDONA or sore throat Cardio: (-) Chest pain or palpitations Resp: (-) SOB or cough GI: (-) N/V/D/C/Abdominal pain : (-) Hematuria or dysuria, (+) dark-colored urine (orange) MSK: (-) LE pain or swelling Objective - Vital Signs/Intake and Output Vital Signs (last 24 hours): Temp Pulse Resp BP Pulse Ox 98.2 F 87 17 103/63 97 08/09/17 07:25 08/09/17 07:25 08/09/17 07:25 08/09/17 07:25 08/09/17 07:25 - Medications Medications: Current Medications Chlordiazepoxide (Librium) 25 mg PO BID [facility] PRN Reason: Taper Stop: 08/10/17 11:59 Last Admin: 08/08/17 18:03 Dose: 25 mg Escitalopram Oxalate (Lexapro) 10 mg PO DAILY@0900 [facility] Folic Acid (Folic Acid) 1 mg PO DAILY [facility] Last Admin: 08/08/17 10:44 Dose: 1 mg Gabapentin (Neurontin) 300 mg PO BID [facility] Last Admin: 08/08/17 18:03 Dose: 300 mg Clindamycin Phosphate 300 mg/ (Sodium Chloride) 52 mls @ 100 mls/hr IVPB Q6H [facility] Last Admin: 08/09/17 06:24 Dose: 100 mls/hr Ketorolac Tromethamine (Toradol) 30 mg IVP Q6 PRN Last Admin: 08/08/17 10:48 Dose: 30 mg Lorazepam (Ativan) 1 mg IVP Q3H PRN PRN Reason: Anxiety Multivitamins (Hexavitamin) 1 tab PO DAILY [facility] Last Admin: 08/08/17 10:45 Dose: 1 tab Oxycodone HCl (Oxycodone Immediate Release Tab) 10 mg PO Q6H PRN PRN Reason: Pain, moderate (4-7) Stop: 08/11/17 16:55 Last Admin: 08/08/17 18:02 Dose: 10 mg Thiamine HCl (Vitamin B1 Tab) 100 mg PO DAILY [facility] Last Admin: 08/08/17 10:44 Dose: 100 mg Trazodone HCl (Desyrel) 100 mg PO HS [facility] Last Admin: 08/08/17 21:31 Dose: 100 mg - Labs Labs: 08/09/17 08:19 08/09/17 08:19 - Constitutional Appears: Non-toxic, No Acute Distress, Unkempt - Head Exam Additional comments: S/P fall. As mentioned previously right maxillary area and pre - orbital area are swollen. It does not affect his vision. Ecyhomis predominaly on the right side. - ENT Exam ENT Exam: Mucous Membranes Moist - Respiratory Exam Respiratory Exam: Clear to Ausculation Bilateral, NORMAL BREATHING PATTERN - Cardiovascular Exam Cardiovascular Exam: REGULAR RHYTHM, +S1, +S2 - GI/Abdominal Exam GI & Abdominal Exam: Soft, Normal Bowel Sounds. 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 As of now we will try to transfer this patient to [facility] to be under the care of an oral & maxillofacial surgeon. Oxycodone 15 mg PO Q6 for pain. 08/08: No acute events overnight. He is able to ambulate ok, not tremulous and not having vision changes on the side of his fall. There is an MRI ordered by neurology. 08/07: He is eager to go home, however I explained to him that it would be better to at least wait another day. Continue with Librium as well as Ativan PRN. We need to monitor his vision of the right eye as it does have pamela-orbital swelling from his fall. He denies blurry vision when I saw him this morning. Monitor for changes. The repeat CT of the head shows that the parahymal area hematoma has NOT changed. * Maxillofacial CT: Depressed fracture of the anterior wall of the right maxillary sinus with fracture involving the medial and posterior romero of the right maxillary sinus. Fracture of the anterior nasal spine of the maxilla. Air- fluid levels within maxillary sinuses bilaterally with thinning of the medial wall of the maxillary sinuses (trauma or underlying chronic sinus disease and nasal polyposis). Simple linear fracture through the lateral pterygoid plate on the left. Mucosal thickening noted with in the frontal, ethmoid, and maxillary sinuses. Gyriform hyperdensity noted within the left frontal lobe (poss petechial hemorrhage). * Head CT: Small parenchymal hematoma in the left frontal lobe. It appears slightly larger normal examination done 2 hours ago. Air-fluid levels noted within the maxillary sinuses bilaterally. Mucosal thickening extending into the ethmoid and frontal sinuses. Air-fluid levels. Soft tissue swelling noted over the right frontal bone. * Neuro Consult (Shirley) - recs appreciated * Psych consult (Jud) - started on lexapro 10 mg QD * Seizure precautions * Librium taper, Folic acid 1 mg PO QD, Ativan 1 mg IV Q3H PRN, Thiamine 100 mg PO QD, Multivitamin QD Laceration of right eyebrow * Clindamycin 300 mg IV q6 * wound care Prophylaxis * SCDs <Eugenio De Guzman - Last Filed: 08/10/17 08:47> Objective - Vital Signs/Intake and Output Vital Signs (last 24 hours): Temp Pulse Resp BP Pulse Ox 98.4 F 68 20 85/49 L 98 08/09/17 23:30 08/09/17 23:30 08/09/17 23:30 08/09/17 23:30 08/09/17 23:30 - Medications Medications: Current Medications Chlordiazepoxide (Librium) 25 mg PO DAILY [facility] PRN Reason: Taper Stop: 08/10/17 11:59 Last Admin: 08/09/17 10:31 Dose: 25 mg Escitalopram Oxalate (Lexapro) 10 mg PO DAILY@0900 [facility] Last Admin: 08/09/17 10:32 Dose: 10 mg Folic Acid (Folic Acid) 1 mg PO DAILY [facility] Last Admin: 08/09/17 10:31 Dose: 1 mg Gabapentin (Neurontin) 300 mg PO BID [facility] Last Admin: 08/09/17 17:59 Dose: 300 mg Clindamycin Phosphate 300 mg/ (Sodium Chloride) 52 mls @ 100 mls/hr IVPB Q6H [facility] Last Admin: 08/10/17 05:51 Dose: 100 mls/hr Sodium Chloride (Sodium Chloride 0.9%) 1,000 mls @ 100 mls/hr IV .Q10H [facility] Last Admin: 08/10/17 05:52 Dose: 100 mls/hr Ketorolac Tromethamine (Toradol) 30 mg IVP Q6 PRN Last Admin: 08/09/17 22:56 Dose: 30 mg Lorazepam (Ativan) 1 mg IVP Q3H PRN PRN Reason: Anxiety Multivitamins (Hexavitamin) 1 tab PO DAILY [facility] Last Admin: 08/09/17 10:30 Dose: 1 tab Oxycodone HCl (Oxycodone Immediate Release Tab) 15 mg PO Q6 PRN PRN Reason: Pain, moderate (4-7) Last Admin: 08/10/17 01:01 Dose: 15 mg Thiamine HCl (Vitamin B1 Tab) 100 mg PO DAILY [facility] Last Admin: 08/09/17 10:32 Dose: 100 mg Trazodone HCl (Desyrel) 100 mg PO HS [facility] Last Admin: 08/09/17 22:56 Dose: 100 mg - Labs Labs: 08/10/17 06:48 08/10/17 06:48 Attending/Attestation - Attestation I have personally seen and examined this patient.: Yes I have fully participated in the care of the patient.: Yes I have reviewed all pertinent clinical information, including history, physical exam and plan: Yes Notes (Text): 08/10/17 08:43 Patient was seen and examined at bedside with the resident Patient complains of pain in the right side of the face and swelling in the right side the face Patient is unable to tolerate solid food at this time. He is on liquid diet. We have consulted neurosurgery. The resident spoke with Dr. Dickens. Dr. Dickens reviewed and imaging studies and states that patient does not need any neurosurgical intervention and there is no need for neurosurgery consultation. The contacted the oral maxillofacial surgeon at the [facility]. As per the resident's discussion with the OMFS surgeon at the [facility] patient to Will be seen once he is discharged from this hospital. We will try to contact the team again and see if the patient can safely be discharged so that he can follow with OMFS surgeon as outpatient I discussed the plan of care with the resident and I was directly involved with the care of this patient on multiple occasions during the day. I agree with the assessment and plan documented by the resident with the exceptions noted here.
[2017-08-09] MEDS: Multiple Vitamins Tab PO SCH (10:30)
[2017-08-09] MEDS: oxyCODONE 10 mg Immediate Release Tab PO PRN ×2 (10:31→17:59)
--- NOTE | 2017-08-09 11:53 | MRI ---
PROCEDURE: MRI BRAIN WITHOUT CONTRAST HISTORY: seizure COMPARISON: None. TECHNIQUE: Multiplanar, multisequence MR images of the brain were obtained without intravenous contrast enhancement. FINDINGS: HEMORRHAGE: Signal dephasing is appreciated in the cortex and subcortical reason and in a small volume of the left frontal lobe in the periphery laterally. Mildly increased long TR and neutral short TE signal is appreciated so she with this lesion compatible with intraparenchymal hemorrhage subacute in duration most likely. DWI: No evidence of an acute or early subacute infarction. BRAIN PARENCHYMA: Other than the local minimal signal changes related to the left frontal intraparenchymal hemorrhage, rib the remaining supra and infratentorial brain parenchyma is normal in signal including the brainstem. There is no mass effect or suspicious extra-axial collection appreciated. There is no disturbance of the midline brain anatomy. No MR evidence to suggest mesial temporal sclerosis bilaterally. VENTRICLES: Unremarkable. No hydrocephalus. CRANIUM: Unremarkable. ORBITS: Grossly unremarkable. PARANASAL SINUSES/MASTOIDS: Extensive bilateral maxillary sinusitis changes are again identified VASCULAR SYSTEM: Skull base flow voids intact. OTHER FINDINGS: None. IMPRESSION: Intraparenchymal hemorrhage at the left frontal lobe is identified with underlying lesion not completely excluded here. This is a small volume of tissue and is difficult to evaluate as a result. Follow-up brain MRI is advised with a without contrast following resolution of hemorrhage. Remainder of the examination appears normal.
--- NOTE | 2017-08-09 12:30 | CARD ---
APPROVED REPORT EKG Measurement Heart [id number] <Conclusion> Normal sinus rhythm Septal infarct, age undetermined Abnormal ECG
[2017-08-09] MEDS: Sodium Chloride 0.9% 1,000 ML IV SCH (17:01)
[2017-08-09] MEDS: oxyCODONE 5 mg Immediate Release Tab PO PRN (18:04)
--- NOTE | 2017-08-09 21:10 | PN ---
NEUROLOGY PROGRESS NOTE DATE: 08/09/2017 SUBJECTIVE: The patient is lying on the bed in no acute distress. Does complain of pain on the right side of the face. Denies having any headache. PHYSICAL EXAMINATION: VITAL SIGNS: His blood pressure is 104/64, heart rate is 71 per minute, breathing at a rate of 16 per minute, temperature is 98.2 degrees Fahrenheit. HEENT: Head is normocephalic. Positive periorbital ecchymosis noted. Positive swelling in the right maxillary region. NECK: Supple. There are no carotid bruits. LUNGS: Clear. CARDIOVASCULAR: S1 and S2 audible. No murmurs. ABDOMEN: Soft, nontender. Bowel sounds are present. NEUROLOGIC: Mental Status: The patient is awake and alert, oriented to time, place and person. Speech is fluent. Naming and repetition are normal. Memory and cognition are intact. Cranial Nerve Examination: Pupils are 4 mm bilaterally, reactive to light. Visual mae are full. Extraocular movements are intact. There is no facial asymmetry. Palate is upgoing bilaterally and tongue is midline. Motor Examination: Tone is normal; power is 5/5 bilaterally in all extremities. Plantars downgoing bilaterally. LABORATORY DATA: Reviewed. MRI of the brain; intraparenchymal hemorrhage of the left frontal lobe is identified with underlying lesion not completely excluded here. There is a small volume of tissue and it is difficult to evaluate as a result. Followup brain MRI advised with and without contrast following resolution of the hemorrhage. Remainder of the examination appears normal. IMPRESSION: 1. Seizures, which appears to be secondary to alcohol related. 2. Questionable small punctate left frontal hemorrhage. 3. Right maxillary bone fracture. RECOMMENDATIONS: 1. The patient had electroencephalogram done which is normal. 2. The patient had no further seizure. 3. The patient will require MRI of the brain with and without contrast as an outpatient in about three to four weeks. 4. The patient will be continued on Librium. 5. The patient is complaining of pain, we will increase the dose of oxycodone to 15 mg every 6 hours p.r.n. 6. The patient will need maxillofacial surgery evaluation for the fracture of the maxilla. 7. Please continue supportive care and treatment. Thank you for the opportunity to participate in the care of this patient. Migdalia Watson MD
[2017-08-10 00:26] VITALS: RESP 20
[2017-08-10] MEDS: oxyCODONE 5 mg Immediate Release Tab PO PRN (01:01)
[2017-08-10] MEDS: Clindamycin 300 MG in Sodium Chloride 0.9% 50 ML IVPB SCH ×4 (01:01→21:18)
[2017-08-10] MEDS: Sodium Chloride 0.9% 1,000 ML IV SCH ×4 (04:20→21:21)
--- NOTE | 2017-08-10 06:05 | EEG ---
ELECTROENCEPHALOGRAM REPORT INTRODUCTION: This is a digitally recorded EEG monitoring using standard EEG montages. Background rhythm, the EEG shows a background activity of 9 to 10 hertz of activity in parieto-occipital region. EEG activity is bilaterally symmetrical and synchronous. There is attenuation of the background activity on eye opening. Abnormal potentials: No spike, sharp waves or focal slowing was seen. Photic stimulation and hyperventilation: Photic stimulation did not reveal any abnormality. Hyperventilation was not performed. IMPRESSION: Normal electroencephalogram. No epileptiform activity seen in this electroencephalogram recording. Migdalia Watson MD
[2017-08-10 06:58] LABS: BASO # 0.1 K/uL (0.0-0.2); BASO % 1.3 % (0.0-2.0); EOS # 0.2 K/uL (0.0-0.7); EOS % 4.2 % (0.0-4.0); HEMATOCRIT 35.8 % (35.0-51.0); LYMPH # 1.6 K/uL (1.0-4.3); MEAN CELL VOLUME 94.1 fL (80.0-94.0); MEAN CORPUSCULAR HEMOGLOBIN 32.6 pg (27.0-31.0); MEAN CORPUSCULAR HGB CONC 34.6 g/dL (33.0-37.0); MEAN PLATELET VOLUME 6.6 fL (7.2-11.7); MONO # 0.6 K/uL (0.0-0.8); MONO % 15.3 % (0.0-10.0); NRBC % 0.1 % (0.0-2.0); RED CELL DISTRIBUTION WIDTH 13.1 % (11.5-14.5); WHITE BLOOD COUNT 3.9 K/uL (4.8-10.8)
[2017-08-10 07:21] LABS: CHLORIDE 105 mmol/L (98-107)
[2017-08-10 07:22] LABS: SODIUM 137 mmol/L (132-148)
[2017-08-10 07:23] LABS: POTASSIUM 3.4 mmol/L (3.6-5.2)
[2017-08-10 07:25] LABS: ALB/GLOB RATIO 1.4 (1.0-2.1); ALKALINE PHOSPHATASE 42 U/L (38-126); ALT/SGPT 35 U/L (21-72); AST/SGOT 22 U/L (17-59); BILIRUBIN,TOTAL 0.5 mg/dL (0.2-1.3); BLOOD UREA NITROGEN 10 mg/dL (9-20); CARBON DIOXIDE 26 mmol/L (22-30); GFR AFRICAN-AMERICAN > 60; GLUCOSE,RANDOM 88 mg/dL (75-110); TOTAL PROTEIN 5.2 g/dL (6.3-8.3)
[2017-08-10 07:26] LABS: CALCIUM 8.2 mg/dl (8.6-10.4); MAGNESIUM 1.8 mg/dL (1.6-2.3); PHOSPHOROUS 4.3 mg/dL (2.5-4.5)
[2017-08-10] MEDS: Multiple Vitamins Tab PO SCH (09:34)
[2017-08-10] MEDS ORDERED: Sodium Chloride 0.9% 500 ML IV ONE (09:44)
[2017-08-10] MEDS ORDERED: Potassium Chloride 10 mEq ER Tab PO ONE ×2 (09:45→11:21)
[2017-08-10] MEDS ORDERED: Sodium Chloride 0.9% 1,000 ML IV SCH (10:44)
[2017-08-10] MEDS ORDERED: Sodium Chloride 0.9% 1,000 ML IV ONE (11:20)
--- NOTE | 2017-08-10 16:04 | PCM.PYCHPN ---
Psychiatric Progress Note - Psychiatric Progress Note Patient seen today, length of contact: 16 min Patient Chief Complaint: "no change" Problems Identified/Issues Discussed: The pt is seen, chart reviewed, case discussed with staff. Support given, CBT and WI used briefly No new symptoms reported, improving slowly and needs more time he was hypotensive, so trazodone and gabapentin will be stopped for now No SEs from medications, risks discussed. After care discussed Medication Change: Yes (dc trz and bright.) Medical Record Reviewed: Yes Mental Status Examination - Cognitive Function Orientation: Person, Place, Situation, Time Memory: Intact Attention: WNL Concentration: WNL Association: WNL Fund of Knowledge: WNL - Mood Mood: Depressed, Anxious - Affect Affect: Constricted - Speech Speech: Appropriate - Formal Thought Process Formal Thought Process: No Impairment - Suicidal Ideation Suicidal Ideation: No - Homicidal Ideation Homicidal Ideation: No Goal/Treatment Plan - Goal/Treatment Plan Progress Toward Problem(s) and Goals/Treatment Plan: Started Lexapro DC bright and trz Short Librium detox Vitamins and as needed medications Attend groups and activities Individual therapy Psychoeducation and support Encourage compliance with meds and after care Refer to outpatient program at [facility] Teach healthy lifestyle methods, i.e. diet, exercise, meditation Smoking cessation
--- NOTE | 2017-08-10 16:45 | CP.PCM.PN ---
<Ada Evangelista - Last Filed: 08/10/17 17:33> Subjective - Date & Time of Evaluation Date of Evaluation: 08/10/17 Time of Evaluation: 16:44 - Subjective Subjective: Patient was seen and examined at bedside. Patient still complains of facial pain. He states that he is not feeling well and that the pain is in his entire face, gums, and teeth. He says that he is unable to eat because of the pain. He denies having any seizures overnight, dizziness, or muscle aches. ROS: General: (-) Fever or chills HEENT: (-) CARDONA or sore throat Cardio: (-) Chest pain or palpitations Resp: (-) SOB or cough GI: (-) N/V/D/C/Abdominal pain MSK: (-) LE pain or swelling Objective - Vital Signs/Intake and Output Vital Signs (last 24 hours): Temp Pulse Resp BP Pulse Ox 97.9 F 62 20 80/52 L 97 08/10/17 08:49 08/10/17 14:12 08/10/17 08:49 08/10/17 14:12 08/10/17 08:49 Intake and Output: 08/10/17 08/10/17 06:59 18:59 Intake Total 2200 Balance 2200 - Medications Medications: Current Medications Escitalopram Oxalate (Lexapro) 10 mg PO DAILY@0900 [facility] Last Admin: 08/10/17 09:44 Dose: 10 mg Folic Acid (Folic Acid) 1 mg PO DAILY [facility] Last Admin: 08/10/17 09:34 Dose: 1 mg Clindamycin Phosphate 300 mg/ (Sodium Chloride) 52 mls @ 100 mls/hr IVPB Q6H [facility] Last Admin: 08/10/17 13:45 Dose: 100 mls/hr Sodium Chloride (Sodium Chloride 0.9%) 1,000 mls @ 150 mls/hr IV .Q6H40M [facility] Last Admin: 08/10/17 13:00 Dose: 150 mls/hr Ketorolac Tromethamine (Toradol) 30 mg IVP Q6 PRN Last Admin: 08/10/17 11:51 Dose: 30 mg Lorazepam (Ativan) 1 mg IVP Q3H PRN PRN Reason: Anxiety Multivitamins (Hexavitamin) 1 tab PO DAILY [facility] Last Admin: 08/10/17 09:34 Dose: 1 tab Oxycodone HCl (Oxycodone Immediate Release Tab) 15 mg PO Q6 PRN PRN Reason: Pain, moderate (4-7) Last Admin: 08/10/17 01:01 Dose: 15 mg Thiamine HCl (Vitamin B1 Tab) 100 mg PO DAILY [facility] Last Admin: 08/10/17 09:34 Dose: 100 mg - Labs Labs: 08/10/17 06:48 08/10/17 06:48 - Constitutional Appears: No Acute Distress, Unkempt - Head Exam Head Exam: NORMOCEPHALIC - Eye Exam Eye Exam: EOMI Additional comments: S/P fall. As mentioned previously right maxillary area and pre - orbital area are swollen. It does not affect his vision. Ecyhomis of right and left eye but predominately on the right side. - ENT Exam ENT Exam: Mucous Membranes Moist - Respiratory Exam Respiratory Exam: Clear to Ausculation Bilateral, NORMAL BREATHING PATTERN - Cardiovascular Exam Cardiovascular Exam: REGULAR RHYTHM, +S1, +S2 - GI/Abdominal Exam GI & Abdominal Exam: Soft, Normal Bowel Sounds. absent: Distended, Tenderness - Extremities Exam Extremities Exam: Normal Inspection. 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 Bullock has agreed to see this patient as an outpatient. Records were faxed to the office today for review. Patient liekly to be discharged tomrrow pending BP control. Nutritional consult ordered for malnutrition 2/2 facial fx causing pain with eating. Ensure ordered. Changed dressing over right lateral aspect of eye. 08/09: MRI showing intraparenchymal hemorrhage of the Left frontal lobe. Oxycodone 15 mg PO Q6 for pain. 08/08: No acute events overnight. He is able to ambulate ok, not tremulous and not having vision changes on the side of his fall. There is an MRI ordered by neurology. 08/07: He is eager to go home, however I explained to him that it would be better to at least wait another day. Continue with Librium as well as Ativan PRN. We need to monitor his vision of the right eye as it does have pamela-orbital swelling from his fall. He denies blurry vision when I saw him this morning. Monitor for changes. The repeat CT of the head shows that the parahymal area hematoma has NOT changed. * Maxillofacial CT: Depressed fracture of the anterior wall of the right maxillary sinus with fracture involving the medial and posterior romero of the right maxillary sinus. Fracture of the anterior nasal spine of the maxilla. Air- fluid levels within maxillary sinuses bilaterally with thinning of the medial wall of the maxillary sinuses (trauma or underlying chronic sinus disease and nasal polyposis). Simple linear fracture through the lateral pterygoid plate on the left. Mucosal thickening noted with in the frontal, ethmoid, and maxillary sinuses. Gyriform hyperdensity noted within the left frontal lobe (poss petechial hemorrhage). * Head CT: Small parenchymal hematoma in the left frontal lobe. It appears slightly larger normal examination done 2 hours ago. Air-fluid levels noted within the maxillary sinuses bilaterally. Mucosal thickening extending into the ethmoid and frontal sinuses. Air-fluid levels. Soft tissue swelling noted over the right frontal bone. * Neuro Consult (Shirley) - recs appreciated * Psych consult (Jud) - started on lexapro 10 mg QD * Seizure precautions * Librium taper, Folic acid 1 mg PO QD, Ativan 1 mg IV Q3H PRN, Thiamine 100 mg PO QD, Multivitamin QD Laceration of right eyebrow * Clindamycin 300 mg IV q6 * wound care Prophylaxis * SCDs <Eugenio De Guzamn M - Last Filed: 08/10/17 17:56> Objective - Vital Signs/Intake and Output Vital Signs (last 24 hours): Temp Pulse Resp BP Pulse Ox 97.6 F 63 20 84/46 L 98 08/10/17 15:35 08/10/17 15:35 08/10/17 15:35 08/10/17 15:35 08/10/17 15:35 Intake and Output: 08/10/17 08/10/17 06:59 18:59 Intake Total 2200 Balance 2200 - Medications Medications: Current Medications Escitalopram Oxalate (Lexapro) 10 mg PO DAILY@0900 [facility] Last Admin: 08/10/17 09:44 Dose: 10 mg Folic Acid (Folic Acid) 1 mg PO DAILY [facility] Last Admin: 08/10/17 09:34 Dose: 1 mg Clindamycin Phosphate 300 mg/ (Sodium Chloride) 52 mls @ 100 mls/hr IVPB Q6H [facility] Last Admin: 08/10/17 13:45 Dose: 100 mls/hr Sodium Chloride (Sodium Chloride 0.9%) 1,000 mls @ 150 mls/hr IV .Q6H40M [facility] Last Admin: 08/10/17 13:00 Dose: 150 mls/hr Ketorolac Tromethamine (Toradol) 30 mg IVP Q6 PRN Last Admin: 08/10/17 11:51 Dose: 30 mg Lorazepam (Ativan) 1 mg IVP Q3H PRN PRN Reason: Anxiety Multivitamins (Hexavitamin) 1 tab PO DAILY [facility] Last Admin: 08/10/17 09:34 Dose: 1 tab Oxycodone HCl (Oxycodone Immediate Release Tab) 15 mg PO Q6 PRN PRN Reason: Pain, moderate (4-7) Last Admin: 08/10/17 01:01 Dose: 15 mg Thiamine HCl (Vitamin B1 Tab) 100 mg PO DAILY [facility] Last Admin: 08/10/17 09:34 Dose: 100 mg - Labs Labs: 08/10/17 06:48 08/10/17 06:48 Attending/Attestation - Attestation I have personally seen and examined this patient.: Yes I have fully participated in the care of the patient.: Yes I have reviewed all pertinent clinical information, including history, physical exam and plan: Yes Notes (Text): 08/10/17 17:54 Patient was seen and examined at bedside with the resident Patient complains of pain in the right side of the face. There is no change in the patient We will continue IV fluids in order to improve the blood pressure We will minimize the pain medication which could be the likely cause of low blood pressure We will obtain physical therapy evaluation for the patient The resident has been in discussion with the the oromaxillofacial surgeon. Likely we will discharge the patient and then patient will follow up with OMFS. I discussed the plan of care with the resident in detail and I agree with the history and physical and assessment/plan documented
[2017-08-11] MEDS: Clindamycin 300 MG in Sodium Chloride 0.9% 50 ML IVPB SCH ×3 (00:33→13:12)
[2017-08-11] MEDS: Sodium Chloride 0.9% 1,000 ML IV SCH ×2 (00:33→07:20)
[2017-08-11] MEDS: oxyCODONE 5 mg Immediate Release Tab PO PRN ×2 (06:40→13:13)
[2017-08-11 07:36] LABS: BASO # 0.1 K/uL (0.0-0.2); BASO % 1.1 % (0.0-2.0); EOS # 0.2 K/uL (0.0-0.7); EOS % 3.1 % (0.0-4.0); HEMATOCRIT 35.2 % (35.0-51.0); LYMPH # 1.2 K/uL (1.0-4.3); MEAN CELL VOLUME 94.5 fL (80.0-94.0); MEAN CORPUSCULAR HEMOGLOBIN 33.5 pg (27.0-31.0); MEAN CORPUSCULAR HGB CONC 35.4 g/dL (33.0-37.0); MEAN PLATELET VOLUME 6.7 fL (7.2-11.7); MONO # 0.6 K/uL (0.0-0.8); MONO % 11.6 % (0.0-10.0); NRBC % 0.1 % (0.0-2.0); RED CELL DISTRIBUTION WIDTH 12.8 % (11.5-14.5); WHITE BLOOD COUNT 5.2 K/uL (4.8-10.8)
[2017-08-11 08:01] LABS: CHLORIDE 113 mmol/L (98-107)
[2017-08-11 08:02] LABS: POTASSIUM 3.9 mmol/L (3.6-5.2); SODIUM 140 mmol/L (132-148)
[2017-08-11 08:04] LABS: ALB/GLOB RATIO 1.4 (1.0-2.1); ALKALINE PHOSPHATASE 43 U/L (38-126); AST/SGOT 19 U/L (17-59); BILIRUBIN,TOTAL 0.5 mg/dL (0.2-1.3); CARBON DIOXIDE 21 mmol/L (22-30); GFR AFRICAN-AMERICAN > 60; TOTAL PROTEIN 5.1 g/dL (6.3-8.3)
[2017-08-11 08:05] LABS: ALT/SGPT 31 U/L (21-72); BLOOD UREA NITROGEN 6 mg/dL (9-20); CALCIUM 8.2 mg/dl (8.6-10.4); GLUCOSE,RANDOM 89 mg/dL (75-110); MAGNESIUM 1.6 mg/dL (1.6-2.3); PHOSPHOROUS 2.9 mg/dL (2.5-4.5)
[2017-08-11] MEDS: Multiple Vitamins Tab PO SCH (10:18)
--- NOTE | 2017-08-11 18:01 | CP.PCM.DIS ---
<Jean CarlosAda - Last Filed: 08/11/17 17:59> Provider - Provider Date of Admission: 08/06/17 21:27 Attending physician: Clint Stark MD Consults: Dr. Shirley Dickens Time Spent in preparation of Discharge (in minutes): 35 Diagnosis - Discharge Diagnosis (1) Eyebrow laceration Status: Acute Comment: Please see summary for more details (2) Facial fracture due to fall Status: Acute Comment: Please see summary for more details (3) Punctate hemorrhage of left frontal lobe Status: Acute Comment: Please see summary for more details (4) Tonic-clonic seizure Status: Acute Comment: Please see summary for more details (5) Alcohol dependence Status: Acute Comment: Please see summary for more details Hospital Course - Lab Results Lab Results: Most Recent Lab Values WBC 5.2 K/uL (4.8-10.8) 08/11/17 07:26 RBC 3.72 Mil/uL (4.40-5.90) L 08/11/17 07:26 Hgb 12.5 g/dL (12.0-18.0) 08/11/17 07:26 Hct 35.2 % (35.0-51.0) 08/11/17 07:26 MCV 94.5 fL (80.0-94.0) H 08/11/17 07:26 MCH 33.5 pg (27.0-31.0) H 08/11/17 07:26 MCHC 35.4 g/dL (33.0-37.0) 08/11/17 07:26 RDW 12.8 % (11.5-14.5) 08/11/17 07:26 Plt Count 210 K/uL (130-400) 08/11/17 07:26 MPV 6.7 fL (7.2-11.7) L 08/11/17 07:26 Neut % (Auto) 60.2 % (50.0-75.0) 08/11/17 07:26 Lymph % (Auto) 24.0 % (20.0-40.0) 08/11/17 07:26 [place] % (Auto) 11.6 % (0.0-10.0) H 08/11/17 07:26 Eos % (Auto) 3.1 % (0.0-4.0) 08/11/17 07:26 Baso % (Auto) 1.1 % (0.0-2.0) 08/11/17 07:26 Neut # 3.1 K/uL (1.8-7.0) 08/11/17 07:26 Lymph # 1.2 K/uL (1.0-4.3) 08/11/17 07:26 [place] # 0.6 K/uL (0.0-0.8) 08/11/17 07:26 Eos # 0.2 K/uL (0.0-0.7) 08/11/17 07:26 Baso # 0.1 K/uL (0.0-0.2) 08/11/17 07:26 Sodium 140 mmol/L (132-148) 08/11/17 07:26 Potassium 3.9 mmol/L (3.6-5.2) 08/11/17 07:26 Chloride 113 mmol/L (98-107) H 08/11/17 07:26 Carbon Dioxide 21 mmol/L (22-30) L 08/11/17 07:26 Anion Gap 10 (10-20) 08/11/17 07:26 BUN 6 mg/dL (9-20) L 08/11/17 07:26 Creatinine 0.8 MG/DL (0.8-1.5) 08/11/17 07:26 Est GFR ( Amer) > 60 08/11/17 07:26 Est GFR (Non-Af Amer) > 60 08/11/17 07:26 Random Glucose 89 mg/dL (75-110) 08/11/17 07:26 Calcium 8.2 mg/dl (8.6-10.4) L 08/11/17 07:26 Phosphorus 2.9 mg/dL (2.5-4.5) 08/11/17 07:26 Magnesium 1.6 mg/dL (1.6-2.3) 08/11/17 07:26 Total Bilirubin 0.5 mg/dL (0.2-1.3) 08/11/17 07:26 AST 19 U/L (17-59) 08/11/17 07:26 ALT 31 U/L (21-72) 08/11/17 07:26 Alkaline Phosphatase 43 U/L (38-126) 08/11/17 07:26 Total Creatine Kinase 127 U/L (55-170) 08/06/17 17:45 Total Protein 5.1 g/dL (6.3-8.3) L 08/11/17 07:26 Albumin 3.0 g/dL (3.5-5.0) L 08/11/17 07:26 Globulin 2.2 gm/dL (2.2-3.9) 08/11/17 07:26 Albumin/Globulin Ratio 1.4 (1.0-2.1) 08/11/17 07:26 Urine Color Straw (YELLOW) 08/06/17 22:11 Urine Clarity Clear (Clear) 08/06/17 22:11 Urine pH 6.0 (5.0-8.0) 08/06/17 22:11 Ur Specific [place] 1.010 (1.003-1.030) 08/06/17 22:11 Urine Protein Negative mg/dL (NEGATIVE) 08/06/17 22:11 Urine Glucose (UA) Normal mg/dL (Normal) 08/06/17 22:11 Urine Ketones 1+ mg/dL (NEGATIVE) H 08/06/17 22:11 Urine Blood Negative (NEGATIVE) 08/06/17 22:11 Urine Nitrate Negative (NEGATIVE) 08/06/17 22:11 Urine Bilirubin Negative (NEGATIVE) 08/06/17 22:11 Urine Urobilinogen Normal mg/dL (0.2-1.0) 08/06/17 22:11 Ur Leukocyte Esterase Neg [place]/uL (Negative) 08/06/17 22:11 Urine WBC (Auto) < 1 /hpf (0-5) 08/06/17 22:11 Urine RBC (Auto) < 1 /hpf (0-3) 08/06/17 22:11 Urine Opiates Screen Positive (NEGATIVE) 08/06/17 22:11 Urine Methadone Screen Negative (NEGATIVE) 08/06/17 22:11 Ur Barbiturates Screen Negative (NEGATIVE) 08/06/17 22:11 Phenytoin < 3.0 ug/mL (10-20) L 08/06/17 17:45 Valproic Acid < 10.0 ug/mL (50.0-100.0) L 08/06/17 17:45 Carbamazepine < 3.0 ug/mL (4.0-12.0) L 08/06/17 17:45 Ur Phencyclidine Scrn Negative (NEGATIVE) 08/06/17 22:11 Ur Amphetamines Screen Negative (NEGATIVE) 08/06/17 22:11 U Benzodiazepines Scrn Negative (NEGATIVE) 08/06/17 22:11 U Oth Cocaine Metabols Negative (NEGATIVE) 08/06/17 22:11 U Cannabinoids Screen Negative (NEGATIVE) 08/06/17 22:11 Alcohol, Quantitative < 10 mg/dl (0-10) 08/06/17 17:45 - Hospital Course Hospital Course: Upon admission: Pt is a 42M with H alcohol abuse and seizures who presents to the ED for seizure. Patient says he was at work when he felt a feeling of robbie vu and then had a seizure. Patient says he had a lot to drink the night before. Patient says he has had seizures in the past after a night of binge drinking. Patient was started on an antiseizure medication 5-6 years ago that he cannot remember the name of but stopped taking it because he says it made him feel depressed. Patient says when he fell this time he hit his face, cut his forehead, and scraped his hands. Patient says he has some generalized muscle aches but denies any other pain in back, neck and extremities. Patient denies CARDONA, F/C, AP/N/V/D/C , CP/SOB. Hospital Course: Patient was admitted for an alcohol-related seizure. On 08/06/17, the patient received a CXR which showed no acute findings and an ECG showed normal sinus rhythm, septal infarct of undetermined age. The maxillofacial CT w/o contrast on 08/06/17 showed a depressed fracture of the anterior wall of the right maxillary sinus with fracture involving the medial wall of the maxillary sinuses. The CT also showed a fracture of the anterior nasal spine of the maxilla, air fluid levels within the maxillary sinuses bilaterally with thinning of the medial wall of the maxillary sinuses, simple linear fracture through the lateral pterygoid plate on the left, mucosal thickening in the frontal, ethmoid, and maxillary sinuses, as well as gyriform hyperdensity within the left frontal lobe. The patient underwent a head CT w/o contrast that day as well which showed a small parenchymal hematoma in the left frontal lobe, air-fluid levels within the maxillary sinuses bilaterally, mucosal thickening extending into the ethmoid and frontal sinuses, soft tissue swelling over the right frontal bone, and fractures demonstrated on the previous CT. Repeat CT of the head on 08/07/17 reported punctate parenchymal hemorrhage in the left frontal lobe unchanged in extent from 08/06/17 and no extra-axial hemorrhage. Dr. Dickens (neurosurgery ) was consulted and a phone conversation was had. He decided that he did not find it necessary to see the patient as the brain bleed was not progressing/ getting larger. Psychiatry (Dr. Renner) was consulted on 08/07/17 and recommended low-dose Lexapro, Gabapentin for anxiety, and short Librium detox. Neurology ( Dr. Negron) was also consulted that day and recommended the patient undergo an MRI of the brain w/o contrast and EEG. Neuro also recommended that no antiepileptic medication be started as it appears the seizures are secondary to alcohol use and that the patient should continue taking Thiamine, a multivitamin , and Ativan. The patient received an EEG on 08/07/17 which showed normal findings and no epileptiform activity. Psychiatry followed up with the patient on 08/08/17 and offered the same recommendations as the prior visit. Brain MRI on 08/09/17 showed intraparenchymal hemorrhage at the left frontal lobe that was not enlarging. Upon Discharge: Patient was seen and examined at bedside, denies F/C, CARDONA, CP, SOB, N/V/D/C, abdominal pain, dysuria, and LE pain or swelling. The patient states that he still has pain in his gums and teeth which he rates a 7-8/10 and says that it has limited his diet as he is unable to chew solid foods comfortably. Patient stable for discharge per Dr. De Guzman. Patient is to follow up with Dr. Bullock [ ] for facial fractures. Patient will also need to follow up with his PCP in 5 days for suture removal. Patient educated on wound care. Patient given oxycodone 5 mg to be taken as needed for severe pain. Patient should finish the course of clindamycin 300 mg TID. Patient is to follow up with Dr. Watson (neurologist [phone]) for management of seizures. Patient should continue lexapro 10 mg Daily for depression. Please note this is a summary of events and for complete details please refer to medical record. - Date & Time of H&P Date of H&P: 08/07/17 Time of H&P: 05:31 Discharge Exam - Head Exam Head Exam: NORMOCEPHALIC Additional comments: Bruising around both eyes. Laceration jst above right eyebrow closed with sutures. Laceration lateral to right eyelid covered with bandage that is c/d/i. - Eye Exam Eye Exam: EOMI - ENT Exam ENT Exam: Mucous Membranes Moist - Respiratory Exam Respiratory Exam: UNREMARKABLE - Cardiovascular Exam Cardiovascular Exam: REGULAR RHYTHM, +S1, +S2 - GI/Abdominal Exam GI & Abdominal Exam: Normal Bowel Sounds, Unremarkable - Extremities Exam Extremities exam: normal inspection - Back Exam Back exam: NORMAL INSPECTION - Neurological Exam Neurological exam: Alert, Oriented x3 - Psychiatric Exam Psychiatric exam: Normal Affect, Normal Mood - Skin Skin Exam: Dry, Normal Color, Warm Discharge Plan - Discharge Medications Prescriptions: Clindamycin [Cleocin] 300 mg PO TID #6 vial Escitalopram [Lexapro] 10 mg PO DAILY@0900 #30 tab oxyCODONE [oxyCODONE Immediate Release Tab] 5 mg PO Q6 PRN #15 tab PRN Reason: Pain, Severe (8-10) - Follow Up Plan Condition: GOOD Disposition: HOME/ ROUTINE Instructions: Clindamycin (By mouth), Oxycodone, Rapid Release (By mouth), Escitalopram (By mouth), Facial Fracture (DC), Full Liquid Diet (DC) Additional Instructions: Patient is to follow up with Dr. Bullock [ ] for facial fractures. Patient will also need to follow up with his PCP in 5 days for suture removal. Patient educated on wound care. Patient given oxycodone 5 mg to be taken as needed for severe pain. Patient should finish the course of clindamycin 300 mg TID. Patient is to follow up with Dr. Watson (neurologist [phone]) for management of seizures. Patient should continue lexapro 10 mg Daily for depression. Referrals: Migdalia Watson MD [Staff Provider] - Ania Bullock DMD [Staff Provider] - <Eugenio De Guzman M - Last Filed: 08/11/17 18:38> Provider - Provider Date of Admission: 08/06/17 21:27 Attending physician: Clint Stark MD Hospital Course - Lab Results Lab Results: Most Recent Lab Values WBC 5.2 K/uL (4.8-10.8) 08/11/17 07:26 RBC 3.72 Mil/uL (4.40-5.90) L 08/11/17 07:26 Hgb 12.5 g/dL (12.0-18.0) 08/11/17 07:26 Hct 35.2 % (35.0-51.0) 08/11/17 07:26 MCV 94.5 fL (80.0-94.0) H 08/11/17 07:26 MCH 33.5 pg (27.0-31.0) H 08/11/17 07:26 MCHC 35.4 g/dL (33.0-37.0) 08/11/17 07:26 RDW 12.8 % (11.5-14.5) 08/11/17 07:26 Plt Count 210 K/uL (130-400) 08/11/17 07:26 MPV 6.7 fL (7.2-11.7) L 08/11/17 07:26 Neut % (Auto) 60.2 % (50.0-75.0) 08/11/17 07:26 Lymph % (Auto) 24.0 % (20.0-40.0) 08/11/17 07:26 [place] % (Auto) 11.6 % (0.0-10.0) H 08/11/17 07:26 Eos % (Auto) 3.1 % (0.0-4.0) 08/11/17 07:26 Baso % (Auto) 1.1 % (0.0-2.0) 08/11/17 07:26 Neut # 3.1 K/uL (1.8-7.0) 08/11/17 07:26 Lymph # 1.2 K/uL (1.0-4.3) 08/11/17 07:26 [place] # 0.6 K/uL (0.0-0.8) 08/11/17 07:26 Eos # 0.2 K/uL (0.0-0.7) 08/11/17 07:26 Baso # 0.1 K/uL (0.0-0.2) 08/11/17 07:26 Sodium 140 mmol/L (132-148) 08/11/17 07:26 Potassium 3.9 mmol/L (3.6-5.2) 08/11/17 07:26 Chloride 113 mmol/L (98-107) H 08/11/17 07:26 Carbon Dioxide 21 mmol/L (22-30) L 08/11/17 07:26 Anion Gap 10 (10-20) 08/11/17 07:26 BUN 6 mg/dL (9-20) L 08/11/17 07:26 Creatinine 0.8 MG/DL (0.8-1.5) 08/11/17 07:26 Est GFR ( Amer) > 60 08/11/17 07:26 Est GFR (Non-Af Amer) > 60 08/11/17 07:26 Random Glucose 89 mg/dL (75-110) 08/11/17 07:26 Calcium 8.2 mg/dl (8.6-10.4) L 08/11/17 07:26 Phosphorus 2.9 mg/dL (2.5-4.5) 08/11/17 07:26 Magnesium 1.6 mg/dL (1.6-2.3) 08/11/17 07:26 Total Bilirubin 0.5 mg/dL (0.2-1.3) 08/11/17 07:26 AST 19 U/L (17-59) 08/11/17 07:26 ALT 31 U/L (21-72) 08/11/17 07:26 Alkaline Phosphatase 43 U/L (38-126) 08/11/17 07:26 Total Creatine Kinase 127 U/L (55-170) 08/06/17 17:45 Total Protein 5.1 g/dL (6.3-8.3) L 08/11/17 07:26 Albumin 3.0 g/dL (3.5-5.0) L 08/11/17 07:26 Globulin 2.2 gm/dL (2.2-3.9) 08/11/17 07:26 Albumin/Globulin Ratio 1.4 (1.0-2.1) 08/11/17 07:26 Urine Color Straw (YELLOW) 08/06/17 22:11 Urine Clarity Clear (Clear) 08/06/17 22:11 Urine pH 6.0 (5.0-8.0) 08/06/17 22:11 Ur Specific [place] 1.010 (1.003-1.030) 08/06/17 22:11 Urine Protein Negative mg/dL (NEGATIVE) 08/06/17 22:11 Urine Glucose (UA) Normal mg/dL (Normal) 08/06/17 22:11 Urine Ketones 1+ mg/dL (NEGATIVE) H 08/06/17 22:11 Urine Blood Negative (NEGATIVE) 08/06/17 22:11 Urine Nitrate Negative (NEGATIVE) 08/06/17 22:11 Urine Bilirubin Negative (NEGATIVE) 08/06/17 22:11 Urine Urobilinogen Normal mg/dL (0.2-1.0) 08/06/17 22:11 Ur Leukocyte Esterase Neg [place]/uL (Negative) 08/06/17 22:11 Urine WBC (Auto) < 1 /hpf (0-5) 08/06/17 22:11 Urine RBC (Auto) < 1 /hpf (0-3) 08/06/17 22:11 Urine Opiates Screen Positive (NEGATIVE) 08/06/17 22:11 Urine Methadone Screen Negative (NEGATIVE) 08/06/17 22:11 Ur Barbiturates Screen Negative (NEGATIVE) 08/06/17 22:11 Phenytoin < 3.0 ug/mL (10-20) L 08/06/17 17:45 Valproic Acid < 10.0 ug/mL (50.0-100.0) L 08/06/17 17:45 Carbamazepine < 3.0 ug/mL (4.0-12.0) L 08/06/17 17:45 Ur Phencyclidine Scrn Negative (NEGATIVE) 08/06/17 22:11 Ur Amphetamines Screen Negative (NEGATIVE) 08/06/17 22:11 U Benzodiazepines Scrn Negative (NEGATIVE) 08/06/17 22:11 U Oth Cocaine Metabols Negative (NEGATIVE) 08/06/17 22:11 U Cannabinoids Screen Negative (NEGATIVE) 08/06/17 22:11 Alcohol, Quantitative < 10 mg/dl (0-10) 08/06/17 17:45 Attending/Attestation - Attestation I have personally seen and examined this patient.: Yes I have fully participated in the care of the patient.: Yes I have reviewed all pertinent clinical information, including history, physical exam and plan: Yes Notes (Text): 08/11/17 18:37 Patient was seen and examined at bedside today Patient still complains of pain on the right side of the face but it is improved significantly since admission Patient is able to tolerate semisolid food Patient blood pressure is better today and the she's been taken off the IV fluids We will discharge the patient home and he has been given information to follow- up with the [facility]. Patient will also follow up with neurology for further evaluation of seizures and for starting medication if needed I discharged the discharge plan with the patient in detail and he verbalized understanding I agree with the discharge note by the resident.
[2017-08-11 18:36] VITALS: BP 116/75; PULSE 60; TEMP 98.1; O2SAT 96
--- NOTE | 2017-08-12 17:27 | CP.PCM.PCO ---
Physician Communication Note - Physician Communication Note Physician Communication Note: Spoke with [facility]; Script: Clindamycin 300mg PO Q 8H (9 tab/0)
== END 2017-08-11 19:04 | disposition home or self-care (01) | DRG 157 ==
LOC: C.ER 16:53 → C.9E 21:27 → C.6T 23:05
PROVIDERS: ADMIT Internal Medicine; ATTEND Internal Medicine
DX: S02.40CA Maxillary fracture, right side, initial encounter for closed fracture (principal); S06.369A Traumatic hemorrhage of cerebrum, unspecified, with loss of consciousness of unspecified duration, initial encounter; G40.89 Other seizures; F33.1 Major depressive disorder, recurrent, moderate; S06.2X9A Diffuse traumatic brain injury with loss of consciousness of unspecified duration, initial encounter; S01.111A Laceration without foreign body of right eyelid and periocular area, initial encounter; W18.30XA Fall on same level, unspecified, initial encounter; F10.20 Alcohol dependence, uncomplicated; F17.210 Nicotine dependence, cigarettes, uncomplicated; F12.10 Cannabis abuse, uncomplicated; F14.90 Cocaine use, unspecified, uncomplicated; F41.9 Anxiety disorder, unspecified; J33.9 Nasal polyp, unspecified; Z59.9 Problem related to housing and economic circumstances, unspecified; Z79.899 Other long term (current) drug therapy

== ENCOUNTER 2018-01-19 06:50 | Inpatient (IN) | payer OTHER ==
[2018-01-19 06:50] VITALS: BMI 18.6
[2018-01-19] MEDS ORDERED: Aspirin 325 mg EC Tablets PO STA (07:11)
--- NOTE | 2018-01-19 07:27 | C.PDOC ---
History Of Present Illness Patient is a 42 y/o male with a pmhx of alcohol withdrawal seizures who presents to the ED complaining of ecchymosis to bilateral eyes and forehead, developing since Wednesday. States he does not recall a fall or seizure since Wednesday, but he did not show up to [facility] with friends and on Wednesday found himself in his apartment, with contusion developing to his forehead. Many prior evaluations for similar complaint here and [place] [facility]. Patient reports he usually drinks 4-6 beers per day and 9-10 beers on the weekends. Denies history of epilepsy, states he is unable to take epileptic medications as they worsen his depression and provoke suicidal ideation. PMD: Jose Head Time Seen by Provider: 01/19/18 07:10 Chief Complaint (Nursing): Seizure History Per: Patient History/Exam Limitations: no limitations Recent Seizure Activity Began: Unknown Past Medical History Reviewed: Historical Data, Nursing Documentation, Vital Signs Vital Signs: Last Vital Signs Temp 98.7 F 01/19/18 10:40 Pulse 60 01/19/18 10:40 Resp 20 01/19/18 10:40 BP 121/73 01/19/18 10:40 Pulse Ox 99 01/19/18 10:40 - Medical History PMH: Seizures (alcohol withdrawal) Denies: HIV, Chronic Kidney Disease Surgical History: Tonsillectomy Family History: States: No Known Family Hx - Social History Hx Alcohol Use: Yes Hx Substance Use: Yes - Immunization History Hx Tetanus Toxoid Vaccination: No Hx Influenza Vaccination: No Hx Pneumococcal Vaccination: No Review Of Systems Except As Marked, All Systems Reviewed And Found Negative. Constitutional: Negative for: Fever, Chills ENT: Negative for: Other (Bit tongue) Cardiovascular: Negative for: Chest Pain Respiratory: Negative for: Shortness of Breath Gastrointestinal: Negative for: Nausea, Vomiting Genitourinary: Negative for: Incontinence Musculoskeletal: Negative for: Neck Pain, Back Pain Skin: Positive for: Bruising (to eyes and forehead) Neurological: Positive for: Seizures. Negative for: Incoordination, Change in Speech, Altered Mental Status, Headache, Dizziness Psych: Positive for: Withdrawal Physical Exam - Physical Exam Appears: Non-toxic, No Acute Distress Skin: Warm, Dry, Ecchymosis (Extensive ecchymosis to the forehead, eyelids, and beneath eyes bilaterally, which appears chronic) Head: Normacephalic, No Laceration, Other (Chronic wound to the right upper forehead area, 2x2 cm) Eye(s): bilateral: Normal Inspection, PERRL, EOMI Ear(s): Bilateral: Normal Nose: Normal Oral Mucosa: Moist Tongue: Normal Appearing Teeth: Normal Dentition Neck: Normal, Normal ROM, Supple Chest: Symmetrical Cardiovascular: Rhythm Regular, No Murmur Respiratory: Normal Breath Sounds, No Accessory Muscle Use Gastrointestinal/Abdominal: Normal Exam, Soft, No Tenderness Back: Normal Inspection, No CVA Tenderness, No Vertebral Tenderness Extremity: Normal ROM, No Tenderness, No Deformity, Other (Mildly tremulous) Extremity: Bilateral: No Pedal Edema, Normal Color And Temperature Pulses: Left Dorsalis Pedis: Normal, Right Dorsalis Pedis: Normal Neurological/Psych: Oriented x3, Normal Speech, Other (Pleasant, cooperative on exam) ED Course And Treatment - Laboratory Results Result Diagrams: 01/19/18 08:01 01/19/18 08:01 Lab Interpretation: Abnormal (CPK 286 mild elevation NOT c/w Rhabdo) O2 Sat by Pulse Oximetry: 98 (RA) Pulse Ox Interpretation: Normal - Radiology CXR: Interpreted by Me CXR Interpretation: Yes: No Acute Disease - CT Scan/US head CT Other Rad Studies (CT/US): Interpreted By Me, Read By Radiologist, Radiology Report Reviewed CT/US Interpretation: IMPRESSION: No acute intracranial hemorrhage. Mild right- sided facial and frontotemporal soft tissue swelling. Progress Note: librium 50 PO Reevaluation Time: 10:21 Reassessment Condition: Improved - Physician Consult Information Outcome Of Conversation: 929: d/w Dr. Meadows, ok to admit. Medical Decision Making Medical Decision Making: Time: 7:11 Initial Plan: * Labs * Chest X-Ray * EKG * CT Head Initial Impression: probable alcohol withdrawal seizure, h/o same 08/15 no h/o epilepsy and "intolerant of seizure meds as they worsen his depression and suicidal ideation" in the past. Librium for w/d (HR 90's) , defer seizure meds for increased risks vs benefits will admit for hydration, follow renal fxn r/o Rhabdo Disposition Doctor Will See Patient In The: Hospital Counseled Patient/Family Regarding: Studies Performed, Diagnosis - Disposition Disposition: HOSPITALIZED Disposition Time: :43 Condition: GOOD - Clinical Impression Clinical Impression: Head injury, Acute renal insufficiency, Facial contusion, Black eye, not otherwise specified, Alcohol withdrawal seizure - Scribe Statement The provider has reviewed the documentation as recorded by the Chantal Goodman Provider Attestation: All medical record entries made by the Chantal were at my direction and personally dictated by me. I have reviewed the chart and agree that the record accurately reflects my personal performance of the history, physical exam, medical decision making, and the department course for this patient. I have also personally directed, reviewed, and agree with the discharge instructions and disposition.
[2018-01-19 08:06] LABS: BASO # 0.1 K/uL (0.0-0.2); BASO % 1.2 % (0.0-2.0); EOS # 0.1 K/uL (0.0-0.7); EOS % 0.9 % (0.0-4.0); HEMOGLOBIN 13.7 g/dL (12.0-18.0); LYMPH # 1.8 K/uL (1.0-4.3); LYMPH % 16.6 % (20.0-40.0); MEAN CORPUSCULAR HEMOGLOBIN 32.5 pg (27.0-31.0); MEAN CORPUSCULAR HGB CONC 35.5 g/dL (33.0-37.0); MEAN PLATELET VOLUME 6.8 fL (7.2-11.7); MONO # 1.2 K/uL (0.0-0.8); MONO % 11.1 % (0.0-10.0); NEUT # 7.8 K/uL (1.8-7.0); NEUT % 70.2 % (50.0-75.0); RBC 4.22 Mil/uL (4.40-5.90)
[2018-01-19 08:09] LABS: MEAN CELL VOLUME 91.6 fL (80.0-94.0); WHITE BLOOD COUNT 11.1 K/uL (4.8-10.8)
[2018-01-19 08:20] LABS: ALB/GLOB RATIO 1.5 (1.0-2.1); ALBUMIN 4.3 g/dL (3.5-5.0); CALCIUM 9.2 mg/dl (8.6-10.4)
[2018-01-19 08:26] LABS: INR 0.9; PROTHROMBIN TIME 9.6 SECONDS (9.7-12.2)
--- NOTE | 2018-01-19 08:59 | RAD ---
Chest x-ray single frontal view History: Shortness of breath. Comparison: 08/06/2017 Findings: Suggestion of deformities of several right upper lateral and posterior ribs. No focal infiltrate or effusion. Heart size within normal limits. Degenerative changes in the spine and shoulders. Impression: Suggestion of deformities of several right upper lateral and posterior ribs. No focal infiltrate or effusion.
--- NOTE | 2018-01-19 09:09 | CT ---
PROCEDURE: CT HEAD WITHOUT CONTRAST. HISTORY: frontal contusion, ecchymosis forehead/orbit area COMPARISON: Comparison made with CT scan brain 08/07/2010. TECHNIQUE: Contiguous helical/ transaxial computed tomography images were obtained through the head/brain without intravenous contrast. Radiation dose: Total exam DLP = 830.33 mGy-cm. This CT exam was performed using one or more of the following dose reduction techniques: Automated exposure control, adjustment of the mA and/or kV according to patient size, and/or use of iterative reconstruction technique. . FINDINGS: HEMORRHAGE: No acute parenchymal, subarachnoid or extra-axial hemorrhage. BRAIN: No mass effect or edema. No atrophy or chronic microvascular ischemic changes. VENTRICLES: No obstructive hydrocephalus. CALVARIUM: No acute calvarial fractures. There is mild right premaxillary, periorbital and frontotemporal soft tissue swelling. PARANASAL SINUSES: Improvement previously noted mucoperiosteal inflammatory changes both maxillary antra MASTOID AIR CELLS: Unremarkable as visualized. No inflammatory changes. OTHER FINDINGS: Globes intact and lenses appropriately located. No retrobulbar hemorrhages or collections are identified. IMPRESSION: No acute intracranial hemorrhage. . Mild right-sided facial and frontotemporal soft tissue swelling.
[2018-01-19] MEDS ORDERED: Sodium Chloride 0.9% 1,000 ML IV ONE (09:30)
[2018-01-19] MEDS ORDERED: Sodium Chloride 0.9% 1,000 ML ONE (09:44)
[2018-01-19] MEDS ORDERED: Thiamine 100 mg/ml Inj IV ONE (15:00)
[2018-01-19] MEDS: Sodium Chloride 0.9% 1,000 ML IV SCH (15:17)
[2018-01-19 17:46] LABS: SQUAMOUS EPITHIAL < 1 /hpf (0-5); URINE BILIRUBIN NEGATIVE (NEGATIVE); URINE BLOOD NEGATIVE (NEGATIVE); URINE CLARITY Clear (Clear); URINE COLOR Straw (YELLOW); URINE GLUCOSE (UA) NORMAL (Normal); URINE LEUKOCYTE ESTERASE NEG Leu/uL (Negative); URINE NITRATE NEGATIVE (NEGATIVE); URINE PROTEIN NEGATIVE (NEGATIVE); URINE UROBILINOGEN NORMAL mg/dL (0.2-1.0)
--- NOTE | 2018-01-19 19:23 | CP.PCM.CON ---
History of Present Illness - History of Present Illness History of Present Illness: pt is seen and examined, full consult is dictated #[id number] 1. FAMILIA r/o atn vs pre renal 2. seizer disorder c/w ivf, check urin elytes, osm,cr Past Patient History - Infectious Disease Hx of Infectious Diseases: None - Past Medical History & Family History Past Medical History?: Yes - Past Social History Smoking Status: Smoker Currrent Status Unknown - CARDIAC Hx Cardiac Disorders: No - PULMONARY Hx Respiratory Disorders: No - NEUROLOGICAL Hx Seizures: Yes (alcohol withdrawal) - HEENT Hx HEENT Problems: No - RENAL Hx Chronic Kidney Disease: No - ENDOCRINE/METABOLIC Hx Endocrine Disorders: No - HEMATOLOGICAL/ONCOLOGICAL Hx Human Immunodeficiency Virus (HIV): No - INTEGUMENTARY Hx Dermatological Problems: No - MUSCULOSKELETAL/RHEUMATOLOGICAL Hx Falls: Yes - GASTROINTESTINAL Hx Gastrointestinal Disorders: No - GENITOURINARY/GYNECOLOGICAL Hx Genitourinary Disorders: No - PSYCHIATRIC Hx Depression: Yes Hx Substance Use: Yes (Marijuana) - SURGICAL HISTORY Hx Tonsillectomy: Yes - ANESTHESIA Hx Anesthesia: Yes Hx Anesthesia Reactions: No Hx Malignant Hyperthermia: No Has any member of the family had a problem w/ anesthesia?: No Meds Allergies/Adverse Reactions: Allergies Allergy/AdvReac Type Severity Reaction Status Date / Time acetaminophen [From Tylenol] Allergy RASH Verified 01/19/18 06:52 amoxicillin Allergy NAUSEA Verified 01/19/18 06:52 ampicillin Allergy RASH Verified 01/19/18 06:52 erythromycin base Allergy URTICARIA Verified 01/19/18 06:52 - Medications Medications: Current Medications Chlordiazepoxide (Librium) 25 mg PO Q8 PRN PRN Reason: Anxiety Last Admin: 01/19/18 16:06 Dose: 25 mg Sodium Chloride (Sodium Chloride 0.9%) 1,000 mls @ 100 mls/hr IV .Q10H CATY Last Admin: 01/19/18 15:17 Dose: 100 mls/hr Thiamine HCl (Vitamin B1 Tab) 100 mg PO DAILY CATY Results - Vital Signs Recent Vital Signs: Last Vital Signs Temp 98 F 01/19/18 15:46 Pulse 55 L 01/19/18 15:46 Resp 18 01/19/18 15:46 BP 112/66 01/19/18 15:46 Pulse Ox 100 01/19/18 15:46 - Labs Result Diagrams: 01/19/18 08:01 01/19/18 08:01 Labs: Laboratory Results - last 24 hr 01/19/18 01/19/18 01/19/18 08:01 08:01 08:01 WBC 11.1 H D RBC 4.22 L Hgb 13.7 Hct 38.7 MCV 91.6 D MCH 32.5 H MCHC 35.5 RDW 14.0 Plt Count 198 MPV 6.8 L Neut % (Auto) 70.2 Lymph % (Auto) 16.6 L [place] % (Auto) 11.1 H Eos % (Auto) 0.9 Baso % (Auto) 1.2 Neut # (Auto) 7.8 H Lymph # (Auto) 1.8 [place] # (Auto) 1.2 H Eos # (Auto) 0.1 Baso # (Auto) 0.1 PT 9.6 L INR 0.9 APTT 28 Sodium 131 L Potassium 3.6 Chloride 95 L Carbon Dioxide 19 L Anion Gap 21 H BUN 29 H Creatinine 2.6 H Est GFR ( Amer) 33 Est GFR (Non-Af Amer) 27 Random Glucose 82 Calcium 9.2 Total Bilirubin 1.2 AST 45 ALT 29 Alkaline Phosphatase 62 Total Creatine Kinase 286 H Troponin I Cancelled NT-Pro-B Natriuret Pep Cancelled Total Protein 7.1 Albumin 4.3 Globulin 2.8 Albumin/Globulin Ratio 1.5 Urine Color Urine Clarity Urine pH Ur Specific [place] Urine Protein Urine Glucose (UA) Urine Ketones Urine Blood Urine Nitrate Urine Bilirubin Urine Urobilinogen Ur Leukocyte Esterase Urine WBC (Auto) Urine RBC (Auto) Ur Squamous Epith Cells Ur Random Sodium Urine Microalbumin 01/19/18 01/19/18 01/19/18 11:05 17:37 17:37 WBC RBC Hgb Hct MCV MCH MCHC RDW Plt Count MPV Neut % (Auto) Lymph % (Auto) [place] % (Auto) Eos % (Auto) Baso % (Auto) Neut # (Auto) Lymph # (Auto) [place] # (Auto) Eos # (Auto) Baso # (Auto) PT INR APTT Sodium Potassium Chloride Carbon Dioxide Anion Gap BUN Creatinine Est GFR ( Amer) Est GFR (Non-Af Amer) Random Glucose Calcium Total Bilirubin AST ALT Alkaline Phosphatase Total Creatine Kinase Troponin I NT-Pro-B Natriuret Pep Total Protein Albumin Globulin Albumin/Globulin Ratio Urine Color Straw Urine Clarity Clear Urine pH 5.0 Ur Specific [place] 1.006 Urine Protein Negative Urine Glucose (UA) Normal Urine Ketones 1+ H Urine Blood Negative Urine Nitrate Negative Urine Bilirubin Negative Urine Urobilinogen Normal Ur Leukocyte Esterase Neg Urine WBC (Auto) 1 Urine RBC (Auto) < 1 Ur Squamous Epith Cells < 1 Ur Random Sodium 35 Urine Microalbumin 14.0
[2018-01-19 22:30] LABS: CREATININE, RANDOM URINE 72.3 mg/dL
--- NOTE | 2018-01-19 23:22 | CP.PCM.HP ---
History of Present Illness - History of Present Illness History of Present Illness: CC: weakness HPI: Patient is a 42 y/o white male who is alcoholic with a pmhx of alcohol withdrawal seizures who presents to the ED complaining of ecchymosis to bilateral eyes and forehead, developing since Wednesday. States he does not recall a fall or seizure since Wednesday, but he did not show up to [facility] with friends and on Wednesday found himself in his apartment, with contusion developing to his forehead.He also recalls having seizure genera;zied tonic clonic and tongue bite. Many prior evaluations for similar complaint here and [place]. Patient reports he usually drinks 4-6 beers per day and 9-10 beers on the weekends. Denies history of epilepsy, states he is unable to take epileptic medications as they worsen his depression and provoke suicidal ideation Present on Admission - Present on Admission Any Indicators Present on Admission: Yes Review of Systems - Review of Systems Systems not reviewed;Unavailable: Acuity of Condition - Constitutional Constitutional: Lethargy, Malaise - EENT Eyes: Dry Eye Ears: absent: As Per HPI, Decreased Hearing, Ear Discharge, Ear Pain, Tinnitus, Abnormal Hearing, Disequilibrium, Dizziness, Other Nose/Mouth/Throat: Nasal Congestion. absent: As Per HPI, Epistaxis, Nasal Discharge, Nasal Obstruction, Nasal Trauma, Nose Pain, Post Nasal Drip, Sinus Pain, Sinus Pressure, Bleeding Gums, Change in Voice, Dental Pain, Dry Mouth, Dysphagia, Halitosis, Hoarsness, Lip Swelling, Mouth Lesions, Mouth Pain, Odynophagia, Sore Throat, Throat Swelling, Tongue Swelling, Facial Pain, Neck Pain, Neck Mass, Other - Cardiovascular Cardiovascular: absent: As Per HPI, Acrocyanosis, Chest Pain, Chest Pain at Rest , Chest Pain with Activity, Claudication, Diaphoresis, Dyspnea, Dyspnea on Exertion, Edema, Irregular Heart Rhythm, Pain Radiating to Arm/Neck/Jaw, Leg Edema, Leg Ulcers, Lightheadedness, Orthopnea, Palpitations, Paroxysmal Nocturnal Dyspnea, Pedal Edema, Radiating Pain, Rapid Heart Rate, Slow Heart Rate, Syncope, Other - Respiratory Respiratory: absent: As Per HPI, Cough, Dyspnea, Hemoptysis, Dyspnea on Exertion , Wheezing, Snoring, Stridor, Pain on Inspiration, Chest Congestion, Excessive Mucous Production, Change in Mucous Color, Pain with Coughing, Other - Gastrointestinal Gastrointestinal: absent: As Per HPI, Abdominal Pain, Belching, Bloating, Change in Bowel Habits, Change in Stool Character, Coffee Ground Emesis, Constipation, Cramping, Diarrhea, Dyspepsia, Dysphagia, Early Satiety, Excessive Flatus, Fecal Incontinence, Heartburn, Hematemesis, Hematochezia, Loose Stools, Melena, Nausea, Odynophagia, Temesmus, Vomiting, Other - Musculoskeletal Musculoskeletal: absent: As Per HPI, Abnormal Gait, Arthralgias, Atrophy, Back Pain, Deformity, Joint Swelling, Limited Range of Motion, Loss of Height, Muscle Cramps, Muscle Weakness, Myalgias, Neck Pain, Numbness, Radiating Pain into Limb, Stiffness, Tingling, Other - Integumentary Integumentary: absent: As Per HPI, Acne, Alopecia, Bleeding Lesions, Change in Hair, Change in Nails, Change in Pigmentation, Changing Lesions, Dry Skin, Erythema, Furuncle, Hirsutism, Lesions, New Lesions, Non-Healing Lesions, Photosensitivity, Pruritus, Rash, Skin Pain, Skin Ulcer, Sores, Striae, Swelling , Unusual Bruising, Wounds, Jaundice, Other - Neurological Neurological: Abnormal Movements, Dizziness Past Patient History - Infectious Disease Hx of Infectious Diseases: None - Past Medical History & Family History Past Medical History?: Yes - Past Social History Smoking Status: Smoker Currrent Status Unknown - CARDIAC Hx Cardiac Disorders: No - PULMONARY Hx Respiratory Disorders: No - NEUROLOGICAL Hx Seizures: Yes (alcohol withdrawal) - HEENT Hx HEENT Problems: No - RENAL Hx Chronic Kidney Disease: No - ENDOCRINE/METABOLIC Hx Endocrine Disorders: No - HEMATOLOGICAL/ONCOLOGICAL Hx Human Immunodeficiency Virus (HIV): No - INTEGUMENTARY Hx Dermatological Problems: No - MUSCULOSKELETAL/RHEUMATOLOGICAL Hx Falls: Yes - GASTROINTESTINAL Hx Gastrointestinal Disorders: No - GENITOURINARY/GYNECOLOGICAL Hx Genitourinary Disorders: No - PSYCHIATRIC Hx Depression: Yes Hx Substance Use: Yes (Marijuana) - SURGICAL HISTORY Hx Tonsillectomy: Yes - ANESTHESIA Hx Anesthesia: Yes Hx Anesthesia Reactions: No Hx Malignant Hyperthermia: No Has any member of the family had a problem w/ anesthesia?: No Meds Allergies/Adverse Reactions: Allergies Allergy/AdvReac Type Severity Reaction Status Date / Time acetaminophen [From Tylenol] Allergy RASH Verified 01/19/18 06:52 amoxicillin Allergy NAUSEA Verified 01/19/18 06:52 ampicillin Allergy RASH Verified 01/19/18 06:52 erythromycin base Allergy URTICARIA Verified 01/19/18 06:52 Physical Exam - Constitutional Appears: Well, Toxic - Head Exam Additional comments: laceration on left side of scalp - Respiratory Exam Respiratory Exam: Clear to Auscultation Bilateral, NORMAL BREATHING PATTERN - Cardiovascular Exam Cardiovascular Exam: REGULAR RHYTHM - GI/Abdominal Exam GI & Abdominal Exam: Normal Bowel Sounds, Soft. absent: Tenderness - Rectal Exam Rectal Exam: Deferred - Neurological Exam Neurological exam: Alert, Oriented x3 - Psychiatric Exam Psychiatric exam: Anxious - Skin Additional comments: Ecchymosis (Extensive ecchymosis to the forehead, eyelids, and beneath eyes bilaterally, which appears chronic) Results - Vital Signs Recent Vital Signs: Last Vital Signs Temp 98 F 01/19/18 15:46 Pulse 55 L 01/19/18 15:46 Resp 18 01/19/18 15:46 BP 112/66 01/19/18 15:46 Pulse Ox 100 01/19/18 15:46 - Labs Result Diagrams: 01/19/18 08:01 01/19/18 08:01 Labs: Laboratory Results - last 24 hr 01/19/18 01/19/18 01/19/18 08:01 08:01 08:01 WBC 11.1 H D RBC 4.22 L Hgb 13.7 Hct 38.7 MCV 91.6 D MCH 32.5 H MCHC 35.5 RDW 14.0 Plt Count 198 MPV 6.8 L Neut % (Auto) 70.2 Lymph % (Auto) 16.6 L [place] % (Auto) 11.1 H Eos % (Auto) 0.9 Baso % (Auto) 1.2 Neut # (Auto) 7.8 H Lymph # (Auto) 1.8 [place] # (Auto) 1.2 H Eos # (Auto) 0.1 Baso # (Auto) 0.1 PT 9.6 L INR 0.9 APTT 28 Sodium 131 L Potassium 3.6 Chloride 95 L Carbon Dioxide 19 L Anion Gap 21 H BUN 29 H Creatinine 2.6 H Est GFR ( Amer) 33 Est GFR (Non-Af Amer) 27 Random Glucose 82 Calcium 9.2 Total Bilirubin 1.2 AST 45 ALT 29 Alkaline Phosphatase 62 Total Creatine Kinase 286 H Troponin I Cancelled NT-Pro-B Natriuret Pep Cancelled Total Protein 7.1 Albumin 4.3 Globulin 2.8 Albumin/Globulin Ratio 1.5 Urine Color Urine Clarity Urine pH Ur Specific [place] Urine Protein Urine Glucose (UA) Urine Ketones Urine Blood Urine Nitrate Urine Bilirubin Urine Urobilinogen Ur Leukocyte Esterase Urine WBC (Auto) Urine RBC (Auto) Ur Squamous Epith Cells Urine Osmolality Ur Random Creatinine Ur Random Sodium Urine Microalbumin 01/19/18 01/19/18 01/19/18 11:05 17:37 17:37 WBC RBC Hgb Hct MCV MCH MCHC RDW Plt Count MPV Neut % (Auto) Lymph % (Auto) [place] % (Auto) Eos % (Auto) Baso % (Auto) Neut # (Auto) Lymph # (Auto) [place] # (Auto) Eos # (Auto) Baso # (Auto) PT INR APTT Sodium Potassium Chloride Carbon Dioxide Anion Gap BUN Creatinine Est GFR ( Amer) Est GFR (Non-Af Amer) Random Glucose Calcium Total Bilirubin AST ALT Alkaline Phosphatase Total Creatine Kinase Troponin I NT-Pro-B Natriuret Pep Total Protein Albumin Globulin Albumin/Globulin Ratio Urine Color Straw Urine Clarity Clear Urine pH 5.0 Ur Specific [place] 1.006 Urine Protein Negative Urine Glucose (UA) Normal Urine Ketones 1+ H Urine Blood Negative Urine Nitrate Negative Urine Bilirubin Negative Urine Urobilinogen Normal Ur Leukocyte Esterase Neg Urine WBC (Auto) 1 Urine RBC (Auto) < 1 Ur Squamous Epith Cells < 1 Urine Osmolality Ur Random Creatinine Ur Random Sodium 35 Urine Microalbumin 14.0 01/19/18 22:08 WBC RBC Hgb Hct MCV MCH MCHC RDW Plt Count MPV Neut % (Auto) Lymph % (Auto) [place] % (Auto) Eos % (Auto) Baso % (Auto) Neut # (Auto) Lymph # (Auto) [place] # (Auto) Eos # (Auto) Baso # (Auto) PT INR APTT Sodium Potassium Chloride Carbon Dioxide Anion Gap BUN Creatinine Est GFR ( Amer) Est GFR (Non-Af Amer) Random Glucose Calcium Total Bilirubin AST ALT Alkaline Phosphatase Total Creatine Kinase Troponin I NT-Pro-B Natriuret Pep Total Protein Albumin Globulin Albumin/Globulin Ratio Urine Color Urine Clarity Urine pH Ur Specific [place] Urine Protein Urine Glucose (UA) Urine Ketones Urine Blood Urine Nitrate Urine Bilirubin Urine Urobilinogen Ur Leukocyte Esterase Urine WBC (Auto) Urine RBC (Auto) Ur Squamous Epith Cells Urine Osmolality 335 Ur Random Creatinine 72.3 Ur Random Sodium 54 Urine Microalbumin Assessment & Plan (1) Alcohol withdrawal seizure Status: Acute (2) Facial contusion Status: Acute (3) Seizure Status: Acute
[2018-01-20] MEDS: Sodium Chloride 0.9% 1,000 ML IV SCH ×4 (00:02→21:03)
[2018-01-20] MEDS ORDERED: Magnesium Sulfate 1 gm in D5W 1 GM/100 ML BAG IVPB SCH (08:00)
[2018-01-20] MEDS: Valproate 500 MG in Sodium Chloride 0.9% 100 ML IVPB ONE ×2 (08:00→08:38)
[2018-01-20 08:16] LABS: MEAN CELL VOLUME 92.4 fL (80.0-94.0); MEAN CORPUSCULAR HEMOGLOBIN 32.4 pg (27.0-31.0); MEAN CORPUSCULAR HGB CONC 35.1 g/dL (33.0-37.0); MEAN PLATELET VOLUME 6.6 fL (7.2-11.7); RBC 4.02 Mil/uL (4.40-5.90); RED CELL DISTRIBUTION WIDTH 13.7 % (11.5-14.5); WHITE BLOOD COUNT 6.3 K/uL (4.8-10.8)
[2018-01-20] MEDS: Magnesium Sulfate 1 gm in D5W 1 GM/100 ML BAG IVPB SCH ×2 (08:28→09:46)
[2018-01-20 08:37] LABS: ALB/GLOB RATIO 1.4 (1.0-2.1); ALBUMIN 3.4 g/dL (3.5-5.0); ALT/SGPT 23 U/L (21-72); AST/SGOT 25 U/L (17-59); BLOOD UREA NITROGEN 20 mg/dL (9-20); CALCIUM 8.3 mg/dl (8.6-10.4); GFR AFRICAN-AMERICAN > 60; GFR NON-AFRICAN AMERICAN 51
--- NOTE | 2018-01-20 10:41 | CON ---
DATE: 01/19/2018 RENAL CONSULTATION LOCATION: The patient is located in room 660 bed A. REQUESTED BY: Dr. Reese Meadows. REASON FOR RENAL CONSULTATION: Acute renal failure, for further evaluation. HISTORY OF PRESENT ILLNESS: Mr. Sanchez is a 42-year-old male with a past medical history significant for seizures for the last 15 years with a history of EtOH abuse and marijuana abuse, who was admitted. The patient was on the floor from Wednesday approximately about 03:00 p.m. until Wednesday. As per the patient, he does not remember. He remembers around 03:00 p.m. on Wednesday, after that he realized only in Wednesday afternoon complaining of severe body aches and also ecchymosis around both eyes and on the right frontal area. Also complains of vomiting about four to five times on Wednesday and also loose bowel movement and occasional dizziness and slight headache. Denies any fever. Denies any trauma. Denies any injury. As per the patient, his past medical history is significant for seizures for more than 15 years. Denies any hypertension. Denies any diabetes. Denies any other medical conditions except seizures. PAST SURGICAL HISTORY: Denies. ALLERGIES: ALLERGIC TO ACETAMINOPHEN, AMOXICILLIN, AMPICILLIN, AND ERYTHROMYCIN BASE. SOCIAL HISTORY: He is a smoker, smokes half a pack per day for the last 15 years and also claims he drinks almost 4-5 days in a week. He drinks sometimes 3 to 6 or more than 6 beers per day and also history of marijuana use one to two times a week. PERSONAL HISTORY: He is single. No children. Both parents are alive and healthy. CURRENT MEDICATIONS: Include as follows, Librium 25 mg p.o. q.8 h. and IV fluids normal saline at 100 mL per hour and thiamine B1 100 mg p.o. daily. REVIEW OF SYSTEMS: Significant for questionable seizures in the house and fall, questionable lying on the floor for more than 12 hours and also significant for vomiting and also diarrhea. All other review of systems reviewed and are negative. PHYSICAL EXAMINATION: VITAL SIGNS: Blood pressure is 112/66, pulse 55, respiration 80, temperature 98, saturation 100%. Height 5 feet 10 inches and weight is 130 pounds. GENERAL: Mr. Sanchez is 42 year old middle-aged male, moderately built, moderately nourished, not in acute distress with ecchymosis around both eyes and also on the right frontal area. HEENT: Pupils normal, reactive to accommodation. Conjunctivae pink. Sclerae anicteric. Tongue is moist. Trachea is midline. LUNGS: Symmetric on both sides. Bilateral breath sounds present. Clear on auscultation. CVS: [place] at the fifth intercostal space of intermediate to midclavicular area. S1, S2 audible. No murmur or gallop. ABDOMEN: Abdomen normal in appearance, soft, tympanic. No guarding. No rigidity. No hepatosplenomegaly. CORPORATE COUNSEL: The patient is alert, awake, oriented x3. Nonfocal neuro examination. Cranial nerves II through XII grossly intact. Sensory and motor system is within normal limits. EXTREMITIES: No cyanosis, no clubbing, no edema. LABORATORY DATA: The previous labs include as follows, RPR was negative as of 08/05/2016 and HIV one and two antibody screening was negative about 01/11/2017. His current lab data include as follows as of 01/19/2018, WBC 11.1, hemoglobin 13.7, hematocrit is 38.7 and platelets 198. PT 9.6, PTT 28. Sodium 131, potassium 3.6, chloride 95, CO2 of 19 and BUN is 29, creatinine is 2.6 and glucose 82, calcium 9.2. Total bili 1.2, AST 45, ALT 29, alkaline phosphatase 62, CPK 286 and total protein 7.1, albumin is 4.3 and urine microalbumin is 14. Urinalysis straw color, clear, pH 5, specific gravity 1.006, protein negative, glucose normal, ketones 1+, blood negative, nitrites negative, bilirubin negative, urobilinogen negative and leukocyte esterase negative, wbc 1, rbc less than 1 and urine osmolality 335, urine creatinine is 72.3 and urine sodium is 35 and 54. Chest x-ray as of 01/19/2018. Impression: Suggestion of deformities of several right upper, lateral and posterior ribs. No focal infiltrate or effusion. CT of the head as of 01/19/2018. Impression: No new acute intracranial hemorrhage, mild right-sided facial and frontal temporal left soft tissue swelling. Ultrasound of the kidneys report is pending at this time. His baseline creatinine from the previous admission was about 1. SUMMARY: Mr. Sanchez is a 42 year old middle-aged male with a history of seizure disorder with multiple admissions with septal abscess and also right maxillary bone fracture in the past and history of rhabdomyolysis, was admitted. Apparently the last time he remembered was Wednesday 03:00 p.m. and then he woke up on Wednesday afternoon around 03:00 p.m. and associated nausea, vomiting, diarrhea, weakness and ecchymosis around both eyes and also right frontal area and increased BUN and creatinine. 1. Nonoliguric acute renal failure, most likely secondary to the recovery phase of acute tubular necrosis, cannot rule out secondary to intravascular volume depletion and dehydration. 2. Seizure disorder. 3. Periorbital ecchymosis and right frontal ecchymosis, most likely secondary to fall secondary to seizures. PLAN: Continue IV fluids normal saline at 100 mL/hour, add multivitamin 1 tablet daily and repeat CBC, BMP in a.m. The patient is not on any medication for seizures at this time, rule out alcohol induced seizures. Consider neurology evaluation. We will follow with you. Thank you for allowing me to participate in your patient's care. Jina Grey MD
--- NOTE | 2018-01-20 12:22 | US ---
Renal ultrasound History: Acute renal insufficiency. Comparison: None available. Technique: Real-time sonography was performed through the kidneys. Findings: Right kidney: 10.9 x 4.5 x 4.8 centimeters. Duplicated renal collecting system. No calculi or hydronephrosis. Visualized aorta is preserved. Underdistended and limited evaluation of the urinary bladder. Left Kidney: 11.2 x 4.9 x 4.8 centimeters. No calculi or hydronephrosis. Impression: Unremarkable sonographic evaluation of the kidneys. Duplicated right renal collecting system.
--- NOTE | 2018-01-20 14:15 | CP.PCM.PN ---
Subjective - Date & Time of Evaluation Date of Evaluation: 01/20/18 Time of Evaluation: 14:15 - Subjective Subjective: pt is seen and examined, follow up consult is dictated#[id number] c/w ivf, renal function is improving bmp in am add mvi 1 tab po qd Objective - Vital Signs/Intake and Output Vital Signs (last 24 hours): Temp Pulse Resp BP Pulse Ox 98.5 F 56 L 20 126/81 100 01/20/18 08:00 01/20/18 08:00 01/20/18 08:00 01/20/18 08:00 01/20/18 08:00 Intake and Output: 01/20/18 01/20/18 06:59 18:59 Intake Total 830 Output Total 800 Balance 30 - Medications Medications: Current Medications Chlordiazepoxide (Librium) 25 mg PO Q8 PRN PRN Reason: Anxiety Last Admin: 01/20/18 01:56 Dose: 25 mg Sodium Chloride (Sodium Chloride 0.9%) 1,000 mls @ 100 mls/hr IV .Q10H CATY Last Admin: 01/20/18 01:45 Dose: 100 mls/hr Thiamine HCl (Vitamin B1 Tab) 100 mg PO DAILY CATY Last Admin: 01/20/18 11:00 Dose: 100 mg - Labs Labs: 01/20/18 08:03 01/20/18 08:03 PT 9.6 SECONDS (9.7-12.2) L 01/19/18 08:01 INR 0.9 01/19/18 08:01 APTT 28 SECONDS (21-34) 01/19/18 08:01
--- NOTE | 2018-01-20 15:23 | MRI ---
PROCEDURE: Magnetic Resonance Angiography Brain HISTORY: Seizures COMPARISON: None available. TECHNIQUE: 3D time of flight MR angiography of the intracranial arteries was performed. Rotating maximum intensity projection images were generated. FINDINGS: INTERNAL CAROTID ARTERIES: Normal flow related signal. The skull base, petrous, cavernous and supraclinoid segments are bilaterally widely patient. ANTERIOR CEREBRAL ARTERIES: Normal flow related signal. A1 and A2 segments are widely patent. Smaller distal branches unremarkable, as visualized. MIDDLE CEREBRAL ARTERIES: Normal flow related signal. M1 and M2 segments are widely patent. Perisylvian branches grossly symmetric. POSTERIOR CIRCULATION: There is origin of bilateral posterior cerebral arteries with a hypoplastic vertebrobasilar system, an anatomic variant. Basilar Artery: Normal flow related signal. Distal Vertebral Arteries: Normal flow related signal. Posterior Cerebral Arteries: Normal flow related signal. Posterior Inferior Cerebellar Arteries: Normal flow related signal. ANEURYSM/ VASCULAR MALFORMATIONS: None. OTHER FINDINGS: None. IMPRESSION: Normal MR angiography of the brain.
--- NOTE | 2018-01-20 15:24 | MRI ---
PROCEDURE: MR Angiography of the neck without contrast HISTORY: Seizures COMPARISON: None available. TECHNIQUE: 3D [id number] angiography of the neck was performed. Rotating maximum intensity projection images of the cervical carotid and vertebral arteries were generated. The origins of the common carotid arteries were not visualized, which is a limitation inherent to the non-contrast time of flight technique. FINDINGS: RIGHT CAROTID ARTERIES: Common Carotid Artery: Normal. Carotid Bifurcation: Normal. Internal Carotid Artery:Normal. External Carotid Artery (proximal branches): Normal. LEFT CAROTID ARTERIES: Common Carotid Artery: Normal. Carotid Bifurcation: Normal. Internal Carotid Artery:Normal. External Carotid Artery (proximal branches): Normal. VERTEBRAL ARTERIES: Right Vertebral Artery: Normal. The right vertebral artery is dominant, an anatomic variant Left Vertebral Artery: Normal. OTHER FINDINGS: None. IMPRESSION: Normal MR Angiography of the neck.
--- NOTE | 2018-01-20 16:21 | MRI ---
PROCEDURE: MRI BRAIN WITHOUT CONTRAST HISTORY: seizures COMPARISON: None. TECHNIQUE: Multiplanar, multisequence MR images of the brain were obtained without intravenous contrast enhancement. FINDINGS: HEMORRHAGE: None DWI: No evidence of an acute or early subacute infarction. BRAIN PARENCHYMA: Loco-white matter differentiation is preserved. There is no mass, mass effect or abnormal extra-axial fluid collection. There is no territorial infarction. The midline sagittal structures are normal. VENTRICLES: There is mild global parenchymal volume loss and proportionate enlargement of the ventricles and cortical sulci, advanced for the patient's age. CRANIUM: There is normal bone marrow signal pattern. ORBITS: Grossly unremarkable. PARANASAL SINUSES/MASTOIDS: Predominantly clear. VASCULAR SYSTEM: There are normal signal voids in the larger intracranial arteries. OTHER FINDINGS: None. IMPRESSION: No acute intracranial abnormality. Mild global parenchymal volume loss, advanced for the patient's age with
--- NOTE | 2018-01-20 20:09 | CP.PCM.PN ---
Subjective - Date & Time of Evaluation Date of Evaluation: 01/20/18 Time of Evaluation: 20:00 - Subjective Subjective: Pt seen and examined at bedside, pt is seizure free, afebrile, on librium,pt is anxious Objective - Vital Signs/Intake and Output Vital Signs (last 24 hours): Temp Pulse Resp BP Pulse Ox 98.1 F 66 19 110/62 97 01/20/18 15:00 01/20/18 15:00 01/20/18 15:00 01/20/18 15:00 01/20/18 15:00 Intake and Output: 01/20/18 01/21/18 18:59 06:59 Intake Total 980 Balance 980 - Medications Medications: Current Medications Chlordiazepoxide (Librium) 25 mg PO Q8 PRN PRN Reason: Anxiety Last Admin: 01/20/18 01:56 Dose: 25 mg Sodium Chloride (Sodium Chloride 0.9%) 1,000 mls @ 100 mls/hr IV .Q10H [facility] Last Admin: 01/20/18 11:00 Dose: Not Given Thiamine HCl (Vitamin B1 Tab) 100 mg PO DAILY [facility] Last Admin: 01/20/18 11:00 Dose: 100 mg - Labs Labs: 01/20/18 08:03 01/20/18 08:03 PT 9.6 SECONDS (9.7-12.2) L 01/19/18 08:01 INR 0.9 01/19/18 08:01 APTT 28 SECONDS (21-34) 01/19/18 08:01 - Constitutional Appears: No Acute Distress - Head Exam Head Exam: ATRAUMATIC, NORMAL INSPECTION, NORMOCEPHALIC - Eye Exam Eye Exam: EOMI, Normal appearance, PERRL Pupil Exam: NORMAL ACCOMODATION, PERRL - Respiratory Exam Respiratory Exam: Clear to Ausculation Bilateral, NORMAL BREATHING PATTERN - Cardiovascular Exam Cardiovascular Exam: REGULAR RHYTHM, +S1, +S2. absent: Murmur - GI/Abdominal Exam GI & Abdominal Exam: Soft, Normal Bowel Sounds. absent: Tenderness - Neurological Exam Neurological Exam: Alert, Awake, CN II-XII Intact, Normal Gait, Oriented x3 Assessment and Plan (1) Alcohol withdrawal seizure Status: Acute (2) Facial contusion Status: Acute (3) Seizure Status: Acute
[2018-01-21] MEDS: Sodium Chloride 0.9% 1,000 ML IV SCH ×2 (01:24→17:10)
--- NOTE | 2018-01-21 07:55 | CP.PCM.PN ---
Subjective - Date & Time of Evaluation Date of Evaluation: 01/21/18 Time of Evaluation: 07:52 - Subjective Subjective: Mr. Sanchez was seen and examined at the bedside. He is alert, oriented in all spheres. He denies any headache, blurred vision, diplopia, lightheadedness, nausea, or vomiting. He is able to follow simple commands. His eyes are reactive to light accommodation, but with fading ecchymosis and swelling in his bilateral periorbital area. There is a non-healing wound noted in his right frontal/parietal area.There was no untoward events overnight. Objective - Vital Signs/Intake and Output Vital Signs (last 24 hours): Temp Pulse Resp BP Pulse Ox 98.6 F 77 20 148/83 99 01/20/18 23:50 01/20/18 23:50 01/20/18 23:50 01/20/18 23:50 01/20/18 23:50 Intake and Output: 01/21/18 01/21/18 06:59 18:59 Intake Total 830 Output Total 400 Balance 430 - Medications Medications: Current Medications Chlordiazepoxide (Librium) 25 mg PO Q8 PRN PRN Reason: Anxiety Last Admin: 01/20/18 21:02 Dose: 25 mg Sodium Chloride (Sodium Chloride 0.9%) 1,000 mls @ 100 mls/hr IV .Q10H [facility] Last Admin: 01/21/18 01:24 Dose: 100 mls/hr Thiamine HCl (Vitamin B1 Tab) 100 mg PO DAILY [facility] Last Admin: 01/20/18 11:00 Dose: 100 mg - Labs Labs: 01/20/18 08:03 01/20/18 08:03 PT 9.6 SECONDS (9.7-12.2) L 01/19/18 08:01 INR 0.9 01/19/18 08:01 APTT 28 SECONDS (21-34) 01/19/18 08:01 - Constitutional Appears: No Acute Distress - Head Exam Head Exam: NORMAL INSPECTION Additional comments: There is a non-healing wound noted in his right frontal/parietal area - Eye Exam Pupil Exam: PERRL Additional comments: His eyes are reactive to light accommodation, but with fading ecchymosis and swelling in his bilateral periorbital area - Neurological Exam Neurological Exam: Alert, Awake, Oriented x3 Neuro motor strength exam: Left Upper Extremity: 5, Right Upper Extremity: 5, Left Lower Extremity: 5, Right Lower Extremity: 5 Additional comments: He is alert, oriented, follow simple commands. Sensation remains intact. Assessment and Plan (1) Alcohol withdrawal seizure Assessment & Plan: Case discussed with Dr. Chris, continue all current medical regimen. Recommend ID to evaluate the wound located in his right frontal/ parietal scalp, echocardiogram, and carotid doppler. Status: Acute
--- NOTE | 2018-01-21 12:44 | CARD ---
APPROVED REPORT EKG Measurement Heart [id number] <Conclusion> Normal sinus rhythm with sinus arrhythmia Moderate voltage criteria for LVH, may be normal variant Early repolarization Borderline ECG
--- NOTE | 2018-01-21 12:45 | CARD ---
APPROVED REPORT EKG Measurement Heart [id number] <Conclusion> Normal sinus rhythm with sinus arrhythmia Normal ECG
--- NOTE | 2018-01-21 16:27 | PCM.PSYCH ---
Initial Psychiatric Evaluation - Initial Psychiatric Evaluation Type of Admission: Voluntary Legal Status: Capacity Current Medications: Active Medications Generic Name Dose Route Start Last Admin Trade Name Freq PRN Reason Stop Dose Admin Chlordiazepoxide 25 mg 01/19/18 14:23 01/20/18 21:02 Librium PO 25 mg Q8 PRN Administration Anxiety Sodium Chloride 1,000 mls @ 100 mls/hr 01/19/18 14:30 01/21/18 01:24 Sodium Chloride 0.9% IV 100 mls/hr .Q10H [facility] Administration Thiamine HCl 100 mg 01/20/18 10:00 01/21/18 09:26 Vitamin B1 Tab PO 100 mg DAILY [facility] Administration Past Psychiatric History - Past Psychiatric History Pertinent Medical Hx (Current Medical&Sleep Prob, Allergies): Allergies Allergy/AdvReac Type Severity Reaction Status Date / Time acetaminophen [From Tylenol] Allergy RASH Verified 01/19/18 06:52 amoxicillin Allergy NAUSEA Verified 01/19/18 06:52 ampicillin Allergy RASH Verified 01/19/18 06:52 erythromycin base Allergy URTICARIA Verified 01/19/18 06:52 No Known Home Med 01/19/18
--- NOTE | 2018-01-21 18:14 | CP.PCM.CON ---
History of Present Illness - History of Present Illness History of Present Illness: 42 y/o male with a pmhx of alcohol withdrawal seizures who presents to the ED complaining of ecchymosis to bilateral eyes and forehead, developing since Wednesday. States he does not recall a fall or seizure since Wednesday, but he did not show up to brun with friends and on Wednesday found himself in his apartment , with contusion developing to his forehead. Many prior evaluations for similar complaint here and [facility]. Patient reports he usually drinks 4-6 beers per day and 9-10 beers on the weekends. Denies history of epilepsy, states he is unable to take epileptic medications as they worsen his depression and provoke suicidal ideation. c/o scalp lesion approx 4 cm in diameter PMH seizures etoh sh- etoh fh- n/c Review of Systems - Constitutional Constitutional: As Per HPI - EENT Eyes: As Per HPI. absent: Blind Spots, Blurred Vision Ears: absent: As Per HPI, Decreased Hearing, Ear Discharge, Ear Pain, Tinnitus, Abnormal Hearing, Disequilibrium, Dizziness, Other Nose/Mouth/Throat: absent: As Per HPI, Epistaxis, Nasal Congestion, Nasal Discharge, Nasal Obstruction, Nasal Trauma, Nose Pain, Post Nasal Drip, Sinus Pain, Sinus Pressure, Bleeding Gums, Change in Voice, Dental Pain, Dry Mouth, Dysphagia, Halitosis, Hoarsness, Lip Swelling, Mouth Lesions, Mouth Pain, Odynophagia, Sore Throat, Throat Swelling, Tongue Swelling, Facial Pain, Neck Pain, Neck Mass, Other - Cardiovascular Cardiovascular: absent: As Per HPI, Acrocyanosis, Chest Pain, Chest Pain at Rest , Chest Pain with Activity, Claudication, Diaphoresis, Dyspnea, Dyspnea on Exertion, Edema, Irregular Heart Rhythm, Pain Radiating to Arm/Neck/Jaw, Leg Edema, Leg Ulcers, Lightheadedness, Orthopnea, Palpitations, Paroxysmal Nocturnal Dyspnea, Pedal Edema, Radiating Pain, Rapid Heart Rate, Slow Heart Rate, Syncope, Other - Respiratory Respiratory: absent: As Per HPI, Cough, Dyspnea, Hemoptysis, Dyspnea on Exertion , Wheezing, Snoring, Stridor, Pain on Inspiration, Chest Congestion, Excessive Mucous Production, Change in Mucous Color, Pain with Coughing, Other - Gastrointestinal Gastrointestinal: absent: As Per HPI, Abdominal Pain, Belching, Bloating, Change in Bowel Habits, Change in Stool Character, Coffee Ground Emesis, Constipation, Cramping, Diarrhea, Dyspepsia, Dysphagia, Early Satiety, Excessive Flatus, Fecal Incontinence, Heartburn, Hematemesis, Hematochezia, Loose Stools, Melena, Nausea, Odynophagia, Temesmus, Vomiting, Other - Genitourinary Genitourinary: absent: As Per HPI, Change in Urinary Stream, Difficulty Urinating, Dysuria, Flank Pain, Hematuria, Pyuria, Nocturia, Urinary Incontinence, Urinary Frequency, Urinary Hesitance, Urinary Urgency, Voiding Freq/Small Amts, Freq UTI, Hx Renal/Bladder Calculi, Hx /Renal Surgery, Bladder Distension, Other - Musculoskeletal Musculoskeletal: absent: As Per HPI, Abnormal Gait, Arthralgias, Atrophy, Back Pain, Deformity, Joint Swelling, Limited Range of Motion, Loss of Height, Muscle Cramps, Muscle Weakness, Myalgias, Neck Pain, Numbness, Radiating Pain into Limb, Stiffness, Tingling, Other - Integumentary Integumentary: As Per HPI, Skin Ulcer, Wounds - Neurological Neurological: As Per HPI - Psychiatric Psychiatric: As Per HPI - Endocrine Endocrine: absent: As Per HPI, Change in Body Appearance, Change in Libido, Cold Intolorance, Deepening of Voice, Excessive Sweating, Fatigue, Flushing, Heat Intolorance, Increase in Ring/Shoe/Hat Size, Palpitations, Polydipsia, Polyphagia, Polyuria, Other - Hematologic/Lymphatic Hematologic: absent: As Per HPI, Easy Bleeding, Easy Bruising, Lymphadenopathy, Other Past Patient History - Infectious Disease Hx of Infectious Diseases: None - Past Medical History & Family History Past Medical History?: Yes - Past Social History Smoking Status: Smoker Currrent Status Unknown - CARDIAC Hx Cardiac Disorders: No - PULMONARY Hx Respiratory Disorders: No - NEUROLOGICAL Hx Seizures: Yes (alcohol withdrawal) - HEENT Hx HEENT Problems: No - RENAL Hx Chronic Kidney Disease: No - ENDOCRINE/METABOLIC Hx Endocrine Disorders: No - HEMATOLOGICAL/ONCOLOGICAL Hx Human Immunodeficiency Virus (HIV): No - INTEGUMENTARY Hx Dermatological Problems: No - MUSCULOSKELETAL/RHEUMATOLOGICAL Hx Falls: Yes - GASTROINTESTINAL Hx Gastrointestinal Disorders: No - GENITOURINARY/GYNECOLOGICAL Hx Genitourinary Disorders: No - PSYCHIATRIC Hx Depression: Yes Hx Substance Use: Yes (Marijuana) - SURGICAL HISTORY Hx Tonsillectomy: Yes - ANESTHESIA Hx Anesthesia: Yes Hx Anesthesia Reactions: No Hx Malignant Hyperthermia: No Has any member of the family had a problem w/ anesthesia?: No Meds Allergies/Adverse Reactions: Allergies Allergy/AdvReac Type Severity Reaction Status Date / Time acetaminophen [From Tylenol] Allergy RASH Verified 01/19/18 06:52 amoxicillin Allergy NAUSEA Verified 01/19/18 06:52 ampicillin Allergy RASH Verified 01/19/18 06:52 erythromycin base Allergy URTICARIA Verified 01/19/18 06:52 - Medications Medications: Current Medications Chlordiazepoxide (Librium) 25 mg PO Q8 PRN PRN Reason: Anxiety Last Admin: 01/20/18 21:02 Dose: 25 mg Sodium Chloride (Sodium Chloride 0.9%) 1,000 mls @ 100 mls/hr IV .Q10H [facility] Last Admin: 01/21/18 01:24 Dose: 100 mls/hr Doxycycline Hyclate 100 mg/ (Sodium Chloride) 100 mls @ 100 mls/hr IVPB Q12H [facility] Thiamine HCl (Vitamin B1 Tab) 100 mg PO DAILY [facility] Last Admin: 01/21/18 09:26 Dose: 100 mg Physical Exam - Constitutional Appears: Non-toxic, Cachectic, Chronically Ill - Head Exam Head Exam: absent: ATRAUMATIC Additional comments: scalp wound with necrotic base 4 cm - Eye Exam Eye Exam: EOMI, PERRL. absent: Scleral icterus Additional comments: bila ecchymoses - ENT Exam ENT Exam: Mucous Membranes Dry - Neck Exam Neck exam: Negative for: Lymphadenopathy - Respiratory Exam Respiratory Exam: Decreased Breath Sounds, Clear to Auscultation Bilateral - Cardiovascular Exam Cardiovascular Exam: REGULAR RHYTHM, +S1, +S2 - GI/Abdominal Exam GI & Abdominal Exam: Diminished Bowel Sounds, Soft. absent: Tenderness - Rectal Exam Rectal Exam: Deferred - Exam Exam: NORMAL INSPECTION - Extremities Exam Extremities exam: Positive for: pedal pulses present. Negative for: calf tenderness, pedal edema, tenderness - Back Exam Back exam: absent: CVA tenderness (L), CVA tenderness (R) - Neurological Exam Neurological exam: Alert, CN II-XII Intact, Oriented x3, Reflexes Normal - Psychiatric Exam Psychiatric exam: Depressed - Skin Skin Exam: Dry Results - Vital Signs Recent Vital Signs: Last Vital Signs Temp 98.4 F 01/21/18 15:41 Pulse 66 01/21/18 15:41 Resp 18 01/21/18 15:41 BP 118/71 01/21/18 15:41 Pulse Ox 98 01/21/18 15:41 - Labs Result Diagrams: 01/20/18 08:03 01/20/18 08:03 Labs: Laboratory Results - last 24 hr 01/19/18 17:37 Urine Chloride 41 Assessment & Plan (1) Acute renal insufficiency Status: Acute (2) Alcohol withdrawal seizure Status: Acute (3) Black eye, not otherwise specified Status: Acute (4) Facial contusion Status: Acute (5) Head injury Status: Acute (6) Alcohol dependence Status: Acute (7) Cellulitis, face Status: Acute - Assessment and Plan (Free Text) Assessment: recc skin biopsy scalp lesion - r/o malignancy cont antibiotics as ordered wound care , seizure precaurtions , neuro and psych eval
--- NOTE | 2018-01-21 18:33 | CP.PCM.PN ---
Subjective - Date & Time of Evaluation Date of Evaluation: 01/21/18 Time of Evaluation: 18:33 - Subjective Subjective: pt is seen and examined, follow up consult is dictated #[id number] check bmp, cbc in am Objective - Vital Signs/Intake and Output Vital Signs (last 24 hours): Temp Pulse Resp BP Pulse Ox 98.4 F 66 18 118/71 98 01/21/18 15:41 01/21/18 15:41 01/21/18 15:41 01/21/18 15:41 01/21/18 15:41 Intake and Output: 01/21/18 01/21/18 06:59 18:59 Intake Total 830 Output Total 400 250 Balance 430 -250 - Medications Medications: Current Medications Chlordiazepoxide (Librium) 25 mg PO Q8 PRN PRN Reason: Anxiety Last Admin: 01/20/18 21:02 Dose: 25 mg Sodium Chloride (Sodium Chloride 0.9%) 1,000 mls @ 100 mls/hr IV .Q10H [facility] Last Admin: 01/21/18 01:24 Dose: 100 mls/hr Doxycycline Hyclate 100 mg/ (Sodium Chloride) 100 mls @ 100 mls/hr IVPB Q12H [facility] Thiamine HCl (Vitamin B1 Tab) 100 mg PO DAILY [facility] Last Admin: 01/21/18 09:26 Dose: 100 mg - Labs Labs: 01/20/18 08:03 01/20/18 08:03 PT 9.6 SECONDS (9.7-12.2) L 01/19/18 08:01 INR 0.9 01/19/18 08:01 APTT 28 SECONDS (21-34) 01/19/18 08:01
--- NOTE | 2018-01-21 23:33 | CP.PCM.PN ---
Subjective - Date & Time of Evaluation Date of Evaluation: 01/21/18 Time of Evaluation: 19:00 - Subjective Subjective: Pt seen and examined, improving,anxious withdrwas at time, brusing and laceration at right periorbital region improving Objective - Vital Signs/Intake and Output Vital Signs (last 24 hours): Temp Pulse Resp BP Pulse Ox 98.4 F 66 18 118/71 98 01/21/18 15:41 01/21/18 15:41 01/21/18 15:41 01/21/18 15:41 01/21/18 15:41 Intake and Output: 01/21/18 01/22/18 18:59 06:59 Intake Total 1000 Output Total 250 800 Balance -250 200 - Medications Medications: Current Medications Chlordiazepoxide (Librium) 25 mg PO Q8 PRN PRN Reason: Anxiety Last Admin: 01/21/18 22:17 Dose: 25 mg Sodium Chloride (Sodium Chloride 0.9%) 1,000 mls @ 100 mls/hr IV .Q10H [facility] Last Admin: 01/21/18 17:10 Dose: Not Given Doxycycline Hyclate 100 mg/ (Sodium Chloride) 100 mls @ 100 mls/hr IVPB Q12H [facility] Last Admin: 01/21/18 19:42 Dose: 100 mls/hr Thiamine HCl (Vitamin B1 Tab) 100 mg PO DAILY [facility] Last Admin: 01/21/18 09:26 Dose: 100 mg - Labs Labs: 01/20/18 08:03 01/20/18 08:03 PT 9.6 SECONDS (9.7-12.2) L 01/19/18 08:01 INR 0.9 01/19/18 08:01 APTT 28 SECONDS (21-34) 01/19/18 08:01 - Constitutional Appears: No Acute Distress - Head Exam Head Exam: ATRAUMATIC, NORMAL INSPECTION, NORMOCEPHALIC - Eye Exam Eye Exam: EOMI, Normal appearance, PERRL Pupil Exam: NORMAL ACCOMODATION, PERRL - Respiratory Exam Respiratory Exam: Clear to Ausculation Bilateral, NORMAL BREATHING PATTERN - Cardiovascular Exam Cardiovascular Exam: REGULAR RHYTHM, +S1, +S2. absent: Murmur - GI/Abdominal Exam GI & Abdominal Exam: Soft, Normal Bowel Sounds. absent: Tenderness Assessment and Plan (1) Alcohol withdrawal seizure Status: Acute (2) Facial contusion Status: Acute (3) Seizure Status: Acute
[2018-01-22] MEDS: Sodium Chloride 0.9% 1,000 ML IV SCH ×2 (02:05→13:19)
[2018-01-22 06:45] LABS: HEMOGLOBIN 13.1 g/dL (12.0-18.0); MEAN CELL VOLUME 92.4 fL (80.0-94.0); MEAN CORPUSCULAR HEMOGLOBIN 32.2 pg (27.0-31.0); MEAN CORPUSCULAR HGB CONC 34.8 g/dL (33.0-37.0); MEAN PLATELET VOLUME 6.4 fL (7.2-11.7); RBC 4.07 Mil/uL (4.40-5.90); RED CELL DISTRIBUTION WIDTH 13.8 % (11.5-14.5); WHITE BLOOD COUNT 6.4 K/uL (4.8-10.8)
[2018-01-22 07:04] LABS: BLOOD UREA NITROGEN 8 mg/dL (9-20); CALCIUM 8.2 mg/dl (8.6-10.4); GFR AFRICAN-AMERICAN > 60; GFR NON-AFRICAN AMERICAN > 60
[2018-01-22 07:38] LABS: HEPATITIS B SURFACE AG Negative (NEGATIVE)
[2018-01-22 07:44] LABS: HEPATITIS A IGM NEGATIVE (NEGATIVE); HEPATITIS B CORE AB NEGATIVE (NEGATIVE)
[2018-01-22 07:56] LABS: HEPATITIS C ANTIBODY NEGATIVE (NEGATIVE)
[2018-01-22] MEDS: Potassium Chloride 20 mEq ER Tab PO ONE ×2 (10:40→10:47)
[2018-01-22] MEDS ORDERED: Potassium Chloride 20 mEq/15 ml LIQ UD PO ONE (12:00)
[2018-01-22] MEDS ORDERED: Divalproex 500 mg DR Tab PO ONE (12:01)
--- NOTE | 2018-01-22 12:10 | CP.PCM.PN ---
Subjective - Date & Time of Evaluation Date of Evaluation: 12/22/17 Time of Evaluation: 12:00 - Subjective Subjective: 42 yr old male, s/p seizure, who has a history of seizures for about 12 years. Objective - Vital Signs/Intake and Output Vital Signs (last 24 hours): Temp Pulse Resp BP Pulse Ox 98.0 F 70 18 112/77 98 01/22/18 08:15 01/22/18 08:15 01/22/18 08:15 01/22/18 08:15 01/22/18 08:15 Intake and Output: 01/22/18 01/22/18 06:59 18:59 Intake Total 1800 Output Total 1200 Balance 600 - Medications Medications: Current Medications Chlordiazepoxide (Librium) 25 mg PO Q8 PRN PRN Reason: Anxiety Last Admin: 01/21/18 22:17 Dose: 25 mg Sodium Chloride (Sodium Chloride 0.9%) 1,000 mls @ 100 mls/hr IV .Q10H [facility] Last Admin: 01/22/18 02:05 Dose: 100 mls/hr Doxycycline Hyclate 100 mg/ (Sodium Chloride) 100 mls @ 100 mls/hr IVPB Q12H [facility] Last Admin: 01/22/18 09:48 Dose: 100 mls/hr Potassium Chloride (Potassium Chloride Oral Soln) 40 meq PO ONCE ONE Stop: 01/22/18 12:01 Thiamine HCl (Vitamin B1 Tab) 100 mg PO DAILY [facility] Last Admin: 01/22/18 09:47 Dose: 100 mg - Labs Labs: 01/22/18 06:34 01/22/18 06:34 PT 9.6 SECONDS (9.7-12.2) L 01/19/18 08:01 INR 0.9 01/19/18 08:01 APTT 28 SECONDS (21-34) 01/19/18 08:01
--- NOTE | 2018-01-22 12:13 | CP.PCM.CON ---
History of Present Illness - History of Present Illness History of Present Illness: 42 yr old male with significant history of alcohol use, who had several seizures earlier yesterday, after drinking for several years. He was out with his friends when he had a loss of consciuosness and had some contusions after a seizure. He is refusing antiepileptic medications because he says they make him psychotic and the patient does not have a history of epilepsy. Patient says that he was drinking about 6 beers at [facility] and woke up , fully dressed s/p a seiuzre with tongue bite. PMH/PSH: non contributory FH/SH: drinks 5 days a week. All: nkda On exam. : normal neurological exam. Past Patient History - Infectious Disease Hx of Infectious Diseases: None - Past Medical History & Family History Past Medical History?: Yes - Past Social History Smoking Status: Smoker Currrent Status Unknown - CARDIAC Hx Cardiac Disorders: No - PULMONARY Hx Respiratory Disorders: No - NEUROLOGICAL Hx Seizures: Yes (alcohol withdrawal) - HEENT Hx HEENT Problems: No - RENAL Hx Chronic Kidney Disease: No - ENDOCRINE/METABOLIC Hx Endocrine Disorders: No - HEMATOLOGICAL/ONCOLOGICAL Hx Human Immunodeficiency Virus (HIV): No - INTEGUMENTARY Hx Dermatological Problems: No - MUSCULOSKELETAL/RHEUMATOLOGICAL Hx Falls: Yes - GASTROINTESTINAL Hx Gastrointestinal Disorders: No - GENITOURINARY/GYNECOLOGICAL Hx Genitourinary Disorders: No - PSYCHIATRIC Hx Depression: Yes Hx Substance Use: Yes (Marijuana) - SURGICAL HISTORY Hx Tonsillectomy: Yes - ANESTHESIA Hx Anesthesia: Yes Hx Anesthesia Reactions: No Hx Malignant Hyperthermia: No Has any member of the family had a problem w/ anesthesia?: No Meds Allergies/Adverse Reactions: Allergies Allergy/AdvReac Type Severity Reaction Status Date / Time acetaminophen [From Tylenol] Allergy RASH Verified 01/19/18 06:52 amoxicillin Allergy NAUSEA Verified 01/19/18 06:52 ampicillin Allergy RASH Verified 01/19/18 06:52 erythromycin base Allergy URTICARIA Verified 01/19/18 06:52 - Medications Medications: Current Medications Chlordiazepoxide (Librium) 25 mg PO Q8 PRN PRN Reason: Anxiety Last Admin: 01/20/18 01:56 Dose: 25 mg Sodium Chloride (Sodium Chloride 0.9%) 1,000 mls @ 100 mls/hr IV .Q10H [facility] Last Admin: 01/20/18 01:45 Dose: 100 mls/hr Thiamine HCl (Vitamin B1 Tab) 100 mg PO DAILY [facility] Results - Vital Signs Recent Vital Signs: Last Vital Signs Temp 98.5 F 01/20/18 08:00 Pulse 56 L 01/20/18 08:00 Resp 20 01/20/18 08:00 BP 126/81 01/20/18 08:00 Pulse Ox 100 01/20/18 08:00 - Labs Result Diagrams: 01/22/18 06:34 01/22/18 06:34 Labs: Laboratory Results - last 24 hr 01/19/18 01/19/18 01/19/18 11:05 17:37 17:37 WBC RBC Hgb Hct MCV MCH MCHC RDW Plt Count MPV Sodium Potassium Chloride Carbon Dioxide Anion Gap BUN Creatinine Est GFR ( Amer) Est GFR (Non-Af Amer) Random Glucose Calcium Total Bilirubin AST ALT Alkaline Phosphatase Total Protein Albumin Globulin Albumin/Globulin Ratio Urine Color Straw Urine Clarity Clear Urine pH 5.0 Ur Specific [place] 1.006 Urine Protein Negative Urine Glucose (UA) Normal Urine Ketones 1+ H Urine Blood Negative Urine Nitrate Negative Urine Bilirubin Negative Urine Urobilinogen Normal Ur Leukocyte Esterase Neg Urine WBC (Auto) 1 Urine RBC (Auto) < 1 Ur Squamous Epith Cells < 1 Urine Osmolality Ur Random Creatinine Ur Random Sodium 35 Urine Microalbumin 14.0 01/19/18 01/20/18 01/20/18 22:08 08:03 08:03 WBC 6.3 RBC 4.02 L Hgb 13.0 Hct 37.1 MCV 92.4 MCH 32.4 H MCHC 35.1 RDW 13.7 Plt Count 185 MPV 6.6 L Sodium 137 Potassium 3.8 Chloride 106 Carbon Dioxide 18 L Anion Gap 17 BUN 20 Creatinine 1.5 Est GFR ( Amer) > 60 Est GFR (Non-Af Amer) 51 Random Glucose 72 L Calcium 8.3 L Total Bilirubin 0.8 AST 25 ALT 23 Alkaline Phosphatase 53 Total Protein 5.9 L Albumin 3.4 L D Globulin 2.5 Albumin/Globulin Ratio 1.4 Urine Color Urine Clarity Urine pH Ur Specific [place] Urine Protein Urine Glucose (UA) Urine Ketones Urine Blood Urine Nitrate Urine Bilirubin Urine Urobilinogen Ur Leukocyte Esterase Urine WBC (Auto) Urine RBC (Auto) Ur Squamous Epith Cells Urine Osmolality 335 Ur Random Creatinine 72.3 Ur Random Sodium 54 Urine Microalbumin - Imaging and Cardiology CT scan - head Status: Image reviewed by me, Report reviewed by me (ct head normal. ) Assessment & Plan - Assessment and Plan (Free Text) Assessment: 42 yr old male with a history of epilepsy that i think may be related to alcohol but it is not entirely clear. I will start him on depakote Iv 1000 mg now and continue him on 500 mg bid. plan: 1. EEG 2. continue depakote 500 mg bid 3. alcohol withdrawal protocol. Dr. Chris Plan: Patient with possible epilepsy syndrome. He should not be able to drive, and shoudl remain on epilepsy medications.
--- NOTE | 2018-01-22 16:26 | CP.PCM.PN ---
Subjective - Date & Time of Evaluation Date of Evaluation: 01/22/18 Time of Evaluation: 16:26 - Subjective Subjective: pt is seen and examined, follow up consult is dictated #[id number] Objective - Vital Signs/Intake and Output Vital Signs (last 24 hours): Temp Pulse Resp BP Pulse Ox 98.0 F 70 18 112/77 98 01/22/18 08:15 01/22/18 08:15 01/22/18 08:15 01/22/18 08:15 01/22/18 08:15 Intake and Output: 01/22/18 01/22/18 06:59 18:59 Intake Total 1800 1400 Output Total 1200 1200 Balance 600 200 - Medications Medications: Current Medications Chlordiazepoxide (Librium) 25 mg PO Q8 PRN PRN Reason: Anxiety Last Admin: 01/21/18 22:17 Dose: 25 mg Divalproex Sodium (Depakote Dr) 500 mg PO BID [facility] Doxycycline Hyclate 100 mg/ (Sodium Chloride) 100 mls @ 100 mls/hr IVPB Q12H [facility] Last Admin: 01/22/18 09:48 Dose: 100 mls/hr Thiamine HCl (Vitamin B1 Tab) 100 mg PO DAILY [facility] Last Admin: 01/22/18 09:47 Dose: 100 mg - Labs Labs: 01/22/18 06:34 01/22/18 06:34 PT 9.6 SECONDS (9.7-12.2) L 01/19/18 08:01 INR 0.9 01/19/18 08:01 APTT 28 SECONDS (21-34) 01/19/18 08:01
--- NOTE | 2018-01-22 16:49 | CP.PCM.PN ---
Objective - Vital Signs/Intake and Output Vital Signs (last 24 hours): Temp Pulse Resp BP Pulse Ox 98.0 F 70 18 112/77 98 01/22/18 08:15 01/22/18 08:15 01/22/18 08:15 01/22/18 08:15 01/22/18 08:15 Intake and Output: 01/22/18 01/22/18 06:59 18:59 Intake Total 1800 1400 Output Total 1200 1200 Balance 600 200 - Medications Medications: Current Medications Chlordiazepoxide (Librium) 25 mg PO Q8 PRN PRN Reason: Anxiety Last Admin: 01/21/18 22:17 Dose: 25 mg Divalproex Sodium (Depakote Dr) 500 mg PO BID [facility] Doxycycline Hyclate 100 mg/ (Sodium Chloride) 100 mls @ 100 mls/hr IVPB Q12H [facility] Last Admin: 01/22/18 09:48 Dose: 100 mls/hr Thiamine HCl (Vitamin B1 Tab) 100 mg PO DAILY [facility] Last Admin: 01/22/18 09:47 Dose: 100 mg - Labs Labs: 01/22/18 06:34 01/22/18 06:34 PT 9.6 SECONDS (9.7-12.2) L 01/19/18 08:01 INR 0.9 01/19/18 08:01 APTT 28 SECONDS (21-34) 01/19/18 08:01 Assessment and Plan - Assessment and Plan (Free Text) Assessment: Patient is seen and examined. Cleared by neurologist for discharge on depakote 500mg bid.
[2018-01-22 17:16] VITALS: BP 100/62; PULSE 83; RESP 20; TEMP 98.8; O2SAT 97
[2018-01-22] MEDS ORDERED: Divalproex 500 mg DR Tab PO SCH (18:00)
--- NOTE | 2018-01-22 23:08 | CP.PCM.DIS ---
Provider - Provider Date of Admission: 01/19/18 09:37 Attending physician: Reese Meadows MD Diagnosis - Discharge Diagnosis (1) Alcohol withdrawal seizure Status: Acute (2) Facial contusion Status: Acute (3) Seizure Status: Acute Hospital Course - Lab Results Lab Results: Most Recent Lab Values WBC 6.4 K/uL (4.8-10.8) 01/22/18 06:34 RBC 4.07 Mil/uL (4.40-5.90) L 01/22/18 06:34 Hgb 13.1 g/dL (12.0-18.0) 01/22/18 06:34 Hct 37.6 % (35.0-51.0) 01/22/18 06:34 MCV 92.4 fL (80.0-94.0) 01/22/18 06:34 MCH 32.2 pg (27.0-31.0) H 01/22/18 06:34 MCHC 34.8 g/dL (33.0-37.0) 01/22/18 06:34 RDW 13.8 % (11.5-14.5) 01/22/18 06:34 Plt Count 183 K/uL (130-400) 01/22/18 06:34 MPV 6.4 fL (7.2-11.7) L 01/22/18 06:34 Neut % (Auto) 70.2 % (50.0-75.0) 01/19/18 08:01 Lymph % (Auto) 16.6 % (20.0-40.0) L 01/19/18 08:01 [place] % (Auto) 11.1 % (0.0-10.0) H 01/19/18 08:01 Eos % (Auto) 0.9 % (0.0-4.0) 01/19/18 08:01 Baso % (Auto) 1.2 % (0.0-2.0) 01/19/18 08:01 Neut # (Auto) 7.8 K/uL (1.8-7.0) H 01/19/18 08:01 Lymph # (Auto) 1.8 K/uL (1.0-4.3) 01/19/18 08:01 [place] # (Auto) 1.2 K/uL (0.0-0.8) H 01/19/18 08:01 Eos # (Auto) 0.1 K/uL (0.0-0.7) 01/19/18 08:01 Baso # (Auto) 0.1 K/uL (0.0-0.2) 01/19/18 08:01 PT 9.6 SECONDS (9.7-12.2) L 01/19/18 08:01 INR 0.9 01/19/18 08:01 APTT 28 SECONDS (21-34) 01/19/18 08:01 Sodium 138 mmol/L (132-148) 01/22/18 06:34 Potassium 3.3 mmol/L (3.6-5.2) L 01/22/18 06:34 Chloride 105 mmol/L (98-107) 01/22/18 06:34 Carbon Dioxide 24 mmol/L (22-30) 01/22/18 06:34 Anion Gap 12 (10-20) 01/22/18 06:34 BUN 8 mg/dL (9-20) L 01/22/18 06:34 Creatinine 0.9 mg/dL (0.8-1.5) 01/22/18 06:34 Est GFR ( Amer) > 60 01/22/18 06:34 Est GFR (Non-Af Amer) > 60 01/22/18 06:34 Random Glucose 83 mg/dL (75-110) 01/22/18 06:34 Calcium 8.2 mg/dl (8.6-10.4) L 01/22/18 06:34 Total Bilirubin 0.8 mg/dL (0.2-1.3) 01/20/18 08:03 AST 25 U/L (17-59) 01/20/18 08:03 ALT 23 U/L (21-72) 01/20/18 08:03 Alkaline Phosphatase 53 U/L (38-126) 01/20/18 08:03 Total Creatine Kinase 286 U/L (55-170) H 01/19/18 08:01 Troponin I Cancelled 01/19/18 08:01 NT-Pro-B Natriuret Pep Cancelled 01/19/18 08:01 Total Protein 5.9 g/dL (6.3-8.3) L 01/20/18 08:03 Albumin 3.4 g/dL (3.5-5.0) L D 01/20/18 08:03 Globulin 2.5 gm/dL (2.2-3.9) 01/20/18 08:03 Albumin/Globulin Ratio 1.4 (1.0-2.1) 01/20/18 08:03 Urine Color Straw (YELLOW) 01/19/18 17:37 Urine Clarity Clear (Clear) 01/19/18 17:37 Urine pH 5.0 (5.0-8.0) 01/19/18 17:37 Ur Specific [place] 1.006 (1.003-1.030) 01/19/18 17:37 Urine Protein Negative mg/dL (NEGATIVE) 01/19/18 17:37 Urine Glucose (UA) Normal mg/dL (Normal) 01/19/18 17:37 Urine Ketones 1+ mg/dL (NEGATIVE) H 01/19/18 17:37 Urine Blood Negative (NEGATIVE) 01/19/18 17:37 Urine Nitrate Negative (NEGATIVE) 01/19/18 17:37 Urine Bilirubin Negative (NEGATIVE) 01/19/18 17:37 Urine Urobilinogen Normal mg/dL (0.2-1.0) 01/19/18 17:37 Ur Leukocyte Esterase Neg [place]/uL (Negative) 01/19/18 17:37 Urine WBC (Auto) 1 /hpf (0-5) 01/19/18 17:37 Urine RBC (Auto) < 1 /hpf (0-3) 01/19/18 17:37 Ur Squamous Epith Cells < 1 /hpf (0-5) 01/19/18 17:37 Urine Osmolality 335 mosm/kg (300-1000) 01/19/18 22:08 Ur Random Creatinine 72.3 mg/dL 01/19/18 22:08 Ur Random Sodium 54 mmol/L 01/19/18 22:08 Urine Microalbumin 14.0 mg/L (0.0-16.6) 01/19/18 11:05 Urine Chloride 41 mmol/L (32-290) 01/19/18 17:37 Hepatitis A IgM Ab Negative (NEGATIVE) 01/22/18 06:34 Hep Bs Antigen Negative (NEGATIVE) 01/22/18 06:34 Hep B Core IgM Ab Negative (NEGATIVE) 01/22/18 06:34 Hepatitis C Antibody Negative (NEGATIVE) 01/22/18 06:34 Discharge Exam - Head Exam Head Exam: ATRAUMATIC, NORMAL INSPECTION, NORMOCEPHALIC Discharge Plan - Discharge Medications Prescriptions: Divalproex [Depakote DR] 500 mg PO BID #60 tcp Doxycycline Monohydrate 100 mg PO BID #14 capsule chlordiazePOXIDE [Librium] 25 mg PO Q8 PRN #5 cap PRN Reason: Anxiety Thiamine [Vitamin B1 Tab] 100 mg PO DAILY #30 tab - Follow Up Plan Condition: GOOD Disposition: HOME/ ROUTINE Instructions: Black Eye, Contusion (DC), Eye Contusion (DC), Doxycycline, Valproic Acid and Derivatives, Acute Kidney Injury (DC) Referrals: Jose Head MD [Medical Doctor] - Reese Meadows MD [Staff Provider] -
--- NOTE | 2018-01-24 07:09 | PN ---
DATE: FOLLOWUP RENAL CONSULTATION LOCATION: The patient is located in room 660, Bed A. REQUESTED BY: Reese Meadows MD REASON FOR FOLLOWUP: Acute renal failure. HISTORY OF PRESENT ILLNESS: Mr. Sanchez is a 42 years old middle aged male with a history of seizure disorder for more than 15 years, multiple admissions with fractures of right maxillary bone and septal abscess, was admitted with a chief complaint of lying on the floor from Wednesday 3 p.m. until Wednesday afternoon. Subsequently, patient noticed ecchymosis in the periorbital area on both sides and also ecchymosis on the right frontal area associated with nausea, vomiting, diarrhea, and decreased p.o. intake. The patient was found to have elevated creatinine. The patient is feeling much better and not in distress. No chest pain. No palpitation. No fever. No cough. PHYSICAL EXAMINATION: GENERAL: Mr. Sanchez is 42 years old middle aged male, moderately build, moderately nourished, not in distress. VITAL SIGNS: This morning as follows: Blood pressure 126/81, pulse 56, respirations 20, temperature 98.5, saturation 100%, height 5 feet 10 inches, weight is 120 pounds. HEENT: Pupils are reactive to light and accommodation. Conjunctiva pink. Sclerae anicteric. Periorbital ecchymosis present, and also right forehead and frontal area. LUNGS: Symmetrical on both sides. Bilateral breath sides present. Clear on auscultation. CVS: [place] at the fifth intercostal space, midclavicular line. S1 and S2 audible. No murmur, gallop. ABDOMEN: Normal in appearance, soft, tympanic. No guarding. No rigidity. No hepatosplenomegaly. SUSTAINABLE AGRICULTURE FACULTY: The patient is alert, awake, and oriented x3. Nonfocal neuro examination. Cranial nerves II through XII grossly intact. Sensory and motor system is within normal limits. EXTREMITIES: No cyanosis, no clubbing, no edema. MEDICATIONS: Librium 25 mg p.o. q.8 hours. IV fluids, normal saline at 160/hour and thiamine 100 mg p.o. daily. LABORATORY DATA: Include as follows: As of 01/20/2018, WBC 6.3, hemoglobin 13, hematocrit 37.1, platelets 185,000. Sodium 137, potassium 3.8, chloride 106, CO2 of 18, BUN 20, creatinine 1.5 and glucose 72, calcium 8.3, total bilirubin 0.8, AST 25, ALT 23, alkaline phosphatase 53, total protein 5.9, albumin is 3.4. As of 01/19/2018, ultrasound of the kidneys, right kidney 10.9 x 4.5 x 4.8, left kidney 11.2 x 4.9 x 4.8 cm. No calculi, no hydronephrosis. MRI of the brain as of 01/20/2018, no acute intracranial abnormality, mild global parenchymal volume loss, advanced for patient's age. MRA of the head, normal MR angiography of the brain. MRA of the neck, normal MR angiography of the neck. IMPRESSION: In summary again, Mr. Sanchez is a 42 years old, middle aged male with history of seizure disorder, multiple admissions, history of right maxillary fracture and also septal abscess in the past who was lying on the floor from Wednesday 3 p.m., the last thing he remember when he woke up on Wednesday afternoon. In between the patient does not remember what happened, and when he checked, he noticed he has periorbital ecchymosis and frontal ecchymosis and severe body pains and also nausea, vomiting, diarrhea and increased BUN/creatinine. 1. Nonoliguric acute renal failure, most likely secondary to acute tubular necrosis. The patient may be in the recovery phase of acute tubular necrosis, cannot rule out rhabdomyolysis. 2. Seizure disorder, rule out alcohol withdrawal seizures. Follow up with Neurology. Check EEG. Please add multivitamin one tablet p.o. daily. We will follow up with you. Thank you for allowing me to participate in your patient's care. Jina Grey MD
--- NOTE | 2018-01-24 10:16 | CON ---
DATE: FOLLOWUP RENAL CONSULTATION LOCATIONS: The patient is located in room 660, bed A. REQUESTED BY: Reese Meadows MD REASON FOR FOLLOWUP: Acute renal failure. SUBJECTIVE: Mr. Sanchez is a 42-year-old male with severe EtOH abuse, was admitted with history of seizures and apparently the patient was lying on the floor. As per the patient, he remembers was on Wednesday at 3:00 p.m. after that he does not know anything and next day he woke up on Wednesday afternoon and found to have bruises on both eyes and also on the right frontal region and also on the temporoparietal area. The patient is not in any acute distress. Denies any injury at home and denies any trauma also. No chest pain or palpitation. No fever. No cough. No nausea, vomiting or diarrhea. PHYSICAL EXAMINATION GENERAL: Mr. Sanchez is a 42-year-old male, thin-built, not in distress. VITAL SIGNS: As follows: Blood pressure 118/71, pulse 66, respirations 18 and temperature 98.4. Height 5 feet 10 inches, weight is 130 pounds. HEENT: Pupils normal, reactive to light and accommodation. The patient has periorbital ecchymosis about 1 inch in diameter, healing scalp ulcer. Tongue is moist. Trachea is midline. LUNGS: Symmetric on both sides. Bilateral breath sounds present. Clear on auscultation. CVS: [place] at the fifth intercostal space, half inch middle to midclavicular line. S1 and S2 audible. No murmur or gallop. ABDOMEN: Normal in appearance. Soft and tympanic. No guarding. No rigidity. No hepatosplenomegaly. JOB PRESS OPERATOR: The patient is alert, awake and oriented x3. Nonfocal neuro examination. Cranial nerves II through XII are grossly intact. Sensory and motor systems is grossly within normal limits. EXTREMITIES: No cyanosis. No clubbing. No edema. CURRENT MEDICATIONS: Include as follows: Doxycycline 100 mg q. 12 hours, Librium 25 mg p.o. q. 8 hours, IV fluid normal saline 100 mL per hour and thiamine 100 mg p.o. daily. LABORATORY DATA: No new labs are available. ASSESSMENT AND PLAN: In summary, Mr. Sanchez is a 42-year-old male with ethanol abuse, questionable seizures, was admitted with elevated BUN and creatinine and serum creatinine is nicely improving with IV hydration. 1. Nonoliguric acute renal failure, most likely secondary to intravascular depletion, cannot rule out rhabdomyolysis. 2. Ethanol abuse. 3. Seizure disorder. Follow up with Neurology for further recommendation. Continue IV fluids and repeat CBC, BMP in a.m. Thank you for allowing me to participate in your patient's care. Jina Grey MD
--- NOTE | 2018-01-24 10:17 | PN ---
FOLLOWUP RENAL CONSULTATION DATE: 01/22/2018 LOCATION: The patient is located in room 660, bed A. REQUESTED BY: Reese Meadows MD SUBJECTIVE: Mr. Sanchez is a 42-year-old middle-aged male with past medical history significant for severe EtOH abuse, seizure disorder, noncompliant with medications who was admitted with acute renal failure and ecchymosis of the both periorbital region and also right frontal area and also right temporoparietal area about 1 inch in diameter. The patient was started on IV hydration and his serum creatinine improved gradually. The patient is not in acute distress. No seizures in the hospital so far. Denies any headache or dizziness. Denies any chest pain or palpitation. Denies any fever or cough. No abdominal pain. No nausea or vomiting or diarrhea. CURRENT MEDICATIONS: Include as follows; Librium 25 mg p.o. q.8 hours, thiamine 100 mg p.o. daily, doxycycline 100 mg p.o. b.i.d. and Depakote 500 mg p.o. b.i.d. PHYSICAL EXAMINATION GENERAL: Mr. Sanchez is a 42-year-old middle-aged male, moderately-built, moderately-nourished, not in acute distress. VITAL SIGNS: As follows; blood pressure 100/62, pulse 83, respirations 20, temperature 98.8 and saturation 97%. Height 5 feet 10 inch and weight is 130 pounds. HEENT: Pupils are normal and reactive to light and accommodation. Conjunctivae pink. Sclerae anicteric. The patient has ecchymosis on the bilateral periorbital region and also ecchymosis on the right frontal area and also ulcer on the right temporoparietal area, which is dry. Tongue is moist. Trachea is midline. LUNGS: Symmetric on both sides. Bilateral breath sounds present. Clear on auscultation. CARDIOVASCULAR SYSTEM: [place] at the fifth intercostal space, midclavicular line. S1 and S2 audible. No murmur and no gallop. ABDOMEN: Normal in appearance, soft, and tympanic. No guarding. No rigidity. No hepatosplenomegaly. CENTRAL NERVOUS SYSTEM: The patient is alert, awake and oriented x3. Nonfocal neuro examination. Cranial nerves II through XII grossly intact. Sensory and motor system is within normal limits. EXTREMITIES: No cyanosis. No clubbing. No edema. LABORATORY DATA: Include as follows; as of 01/22/2018, WBC 6.4, hemoglobin 13.1, hematocrit is 37.6 and platelets 183. Sodium 138, potassium 3.3, chloride 105, CO2 of 24, BUN 8, creatinine 0.9, glucose 83 and calcium 8.2. Hepatitis C antibody is negative. Hepatitis B surface antigen negative. Hepatitis B core antibody IgM is negative. ASSESSMENT: In summary, Mr. Sanchez is a 42-year-old male with ethanol abuse and passed out in the house as per the patient on last week Wednesday around 3:00 p.m. and subsequently he woke on Wednesday afternoon and found bruise on his face and also on the periorbital region and generalized body pain and found to have elevated serum creatinine. 1. Nonoliguric acute renal failure, most likely secondary to intravascular depletion, cannot rule out rhabdomyolysis in recovery phase. 2. Periorbital ecchymosis, etiology is not clear secondary to fall versus trauma or injury. 3. Rule out seizure disorder, rule out secondary to alcohol related seizures. 4. Hypokalemia. PLAN: We will supplement KCl 40 mEq p.o. x1 dose. The patient initially given K-Dur unable to swallow so we changed to KCl 40 mEq, able to swallow KCl liquid. We will follow with you. Check phosphorus and magnesium level. add multivitamin one tablet p.o. daily. Thank you for allowing me to participate in your patient's care. Jina Grey MD
--- NOTE | 2018-01-24 11:57 | VASCLAB ---
PROCEDURE: HISTORY: syncope COMPARISON: None available. TECHNIQUE: Grayscale and duplex Doppler evaluation of the cervical carotid and vertebral arteries were performed. The common carotid, carotid bifurcations and cervical Internal Carotid Artery (ICA) and proximal External Carotid Artery (ECA) were evaluated. The vertebral arteries were evaluated for gross patency and flow direction. Report prepared by Joaquin Fowler, BS, RVT FINDINGS: RIGHT CAROTID ARTERIES: 1. Common Carotid Artery: No significant focal plaque formation of the right common carotid artery. Maximum Peak Systolic velocity: 107 cm/sec: End-diastolic velocity 27 cm/sec. 2. Carotid Bifurcation: plaque formation. Maximum Peak Systolic velocity: 91 cm/sec: End-diastolic velocity 15 cm/sec. 3. Internal Carotid Artery: Plaque description: 3.1. Proximal Segment: Peak systolic velocity 81 cm/sec: End-diastolic velocity 27 cm/sec - % stenosis 0-15% 3.2. Middle Segment: Peak systolic velocity 104 cm/sec: End-diastolic velocity 36 cm/sec - % stenosis 0-15% 3.3. Distal Segment: Peak systolic velocity 85 cm/sec: End-diastolic velocity 34 cm/sec - % stenosis 0-15% 4. External Carotid Artery: No significant focal plaque formation. Peak systolic velocity 91 cm/sec 5. ICA/CCA Ratio: 1.0 LEFT CAROTID ARTERIES: 1. Common Carotid Artery: No significant focal plaque formation of the left common carotid artery. Maximum Peak Systolic velocity: 85 cm/sec: End-diastolic velocity 24 cm/sec. 2. Carotid Bifurcation: plaque formation. Maximum Peak Systolic velocity: 72 cm/sec: End-diastolic velocity 20 cm/sec. 3. Internal Carotid Artery: Plaque description: 3.1. Proximal Segment: Peak systolic velocity 62 cm/sec: End-diastolic velocity 23 cm/sec - % stenosis 0-15% 3.2. Middle Segment: Peak systolic velocity 83 cm/sec: End-diastolic velocity 34 cm/sec - % stenosis 0-15% 3.3. Distal Segment: Peak systolic velocity 85 cm/sec: End-diastolic velocity 36 cm/sec - % stenosis 0-15% 4. External Carotid Artery: No significant focal plaque formation. Peak systolic velocity 68 cm/sec 5. ICA/CCA Ratio: 1.0 VERTEBRAL ARTERIES: 1. Right Vertebral Artery: The right vertebral artery flow direction is antegrade. 2. Left Vertebral Artery: The left vertebral artery flow direction is antegrade. OTHER FINDINGS: 1. Right Brachial Blood pressure: 120 mmHg. 2. Left Brachial Blood pressure: 120 mmHg. IMPRESSION: RIGHT: Duplex scan does not suggest hemodynamically significant stenosis of the right extracranial carotid arteries. LEFT: Duplex scan does not suggest hemodynamically significant stenosis of the left extracranial carotid arteries.
== END 2018-01-22 18:00 | disposition home or self-care (01) | DRG 897 ==
LOC: C.ER 06:50 → SUPCPDRO 06:50 → C.9E 09:37 → C.6T 10:33
PROVIDERS: ADMIT Internal Medicine; ATTEND Internal Medicine
DX: F10.288 Alcohol dependence with other alcohol-induced disorder (principal); F10.239 Alcohol dependence with withdrawal, unspecified; N17.9 Acute kidney failure, unspecified; W19.XXXA Unspecified fall, initial encounter; E87.6 Hypokalemia; F17.210 Nicotine dependence, cigarettes, uncomplicated; S00.10XA Contusion of unspecified eyelid and periocular area, initial encounter; S00.83XA Contusion of other part of head, initial encounter; Z91.14 Patient's other noncompliance with medication regimen; G40.909 Epilepsy, unspecified, not intractable, without status epilepticus

== ENCOUNTER 2018-10-19 09:56 | Emergency (ER) | payer OTHER ==
[2018-10-19 09:57] VITALS: BMI 18.6
[2018-10-19 10:01] VITALS: RESP 18
[2018-10-19 10:59] LABS: BASO # 0.1 K/uL (0.0-0.2); EOS # 0.1 K/uL (0.0-0.7); EOS % 0.5 % (0.0-4.0); HEMOGLOBIN 16.4 g/dL (12.0-18.0); LYMPH # 1.6 K/uL (1.0-4.3); MEAN CELL VOLUME 93.2 fL (80.0-94.0); MEAN CORPUSCULAR HEMOGLOBIN 32.7 pg (27.0-31.0); MEAN CORPUSCULAR HGB CONC 35.1 g/dL (33.0-37.0); MEAN PLATELET VOLUME 6.3 fL (7.2-11.7); MONO % 10.1 % (0.0-10.0); NEUT # 6.8 K/uL (1.8-7.0); NEUT % 71.4 % (50.0-75.0); NRBC % 0.1 % (0.0-2.0); RED CELL DISTRIBUTION WIDTH 13.5 % (11.5-14.5); WHITE BLOOD COUNT 9.6 K/uL (4.8-10.8)
--- NOTE | 2018-10-19 11:01 | C.PDOC ---
History Of Present Illness 43 year old male, whose past medical history includes seizures, presents to the ED for evaluation, stating he has been unable to sleep and eat for the past two days. Patient also reports hearing "noises." Patient states he has been n oncompliant with his Depakote, and his last seizure was four days ago. Patient denies suicidal/homicidal ideation at this time. Time Seen by Provider: 10/19/18 10:06 Chief Complaint (Nursing): Psychiatric Evaluation History Per: Patient History/Exam Limitations: no limitations Onset/Duration Of Symptoms: Days (2) Current Symptoms Are (Timing): Still Present Suicide/Self Injury Attempted (Context): None Associated Symptoms: denies: Suicidal Thoughts, Suicidal Plan Involuntary Hold By: None Recent travel outside of the [place]: No Additional History Per: Patient Past Medical History Reviewed: Historical Data, Nursing Documentation, Vital Signs Vital Signs: Last Vital Signs Temp 98 F 10/19/18 10:00 Pulse 85 10/19/18 10:00 Resp 18 10/19/18 10:00 BP 164/95 H 10/19/18 10:00 Pulse Ox 98 10/19/18 10:00 - Medical History PMH: Depression, Seizures (alcohol withdrawal) Denies: HIV, Chronic Kidney Disease Surgical History: Tonsillectomy Family History: States: Unknown Family Hx - Social History Hx Alcohol Use: Yes Hx Substance Use: Yes (Marijuana) - Immunization History Hx Tetanus Toxoid Vaccination: No Hx Influenza Vaccination: No Hx Pneumococcal Vaccination: No Review Of Systems Constitutional: Positive for: Other (decreased sleep ) Psych: Negative for: Suicidal ideation, Other (homicidal ideation ) Physical Exam - Physical Exam Appears: Non-toxic, No Acute Distress Skin: Normal Color, Warm, Dry Head: Atraumatic, Normacephalic Eye(s): bilateral: Normal Inspection Oral Mucosa: Moist Neck: Supple Chest: Symmetrical, No Deformity, No Tenderness Cardiovascular: Rhythm Regular, No Murmur Respiratory: Normal Breath Sounds, No Rales, No Rhonchi, No Wheezing Extremity: Normal ROM Neurological/Psych: Oriented x3, Normal Speech, Normal Cognition ED Course And Treatment - Laboratory Results Result Diagrams: 10/19/18 10:53 10/19/18 10:53 ECG: Interpreted By Me, Viewed By Me ECG Rhythm: Sinus Rhythm Interpretation Of ECG: Normal Sinus Rhythm at rate 67bpm. Normal intervals, normal axis. No ST/T wave abnormalities. Rate From EC O2 Sat by Pulse Oximetry: 98 (on RA) Pulse Ox Interpretation: Normal Medical Decision Making Medical Decision Making: Assessment: hallucinations and insomnia Plan: * bloodwork * urinalysis * EKG * reassess and disposition Progress: Bloodwork, urinalysis, and EKG ordered and reviewed. CXR preliminary read shows no active disease. On reassessment, patient is resting comfortably, showing no signs of distress and is stable for discharge. Patient states he does not like taking his Depakote because he does not like the way it makes him feel. Patient is advised to follow up with his PMD today for further evaluation. He is advised to return to the ED if symptoms persist or worsen. Patient was evaluated by crisis and cleared by them for psychiatric complaints. Disposition Counseled Patient/Family Regarding: Studies Performed, Diagnosis, Need For Followup - Disposition Referrals: Jose Head MD [Medical Doctor] - Disposition: HOME/ ROUTINE Disposition Time: 12:20 Condition: STABLE Additional Instructions: follow up with your doctor today call to make an appointment take copy of your labs with you to your appointment return to ER immediately if symptoms worsens or progress Instructions: Insomnia (DC), Cocaine Forms: [facility] ([place]), General Discharge Instructions - Clinical Impression Clinical Impression: Insomnia, Cocaine abuse - Scribe Statement The provider has reviewed the documentation as recorded by the Scribe (Cheryl brandt) Provider Attestation: All medical record entries made by the Scribe were at my direction and personally dictated by me. I have reviewed the chart and agree that the record accurately reflects my personal performance of the history, physical exam, medical decision making, and the department course for this patient. I have also personally directed, reviewed, and agree with the discharge instructions and disposition.
[2018-10-19 11:02] LABS: URINE BILIRUBIN NEGATIVE (NEGATIVE); URINE BLOOD 1+ (NEGATIVE); URINE CLARITY Clear (Clear); URINE COLOR Yellow (YELLOW); URINE GLUCOSE (UA) NORMAL (Normal); URINE LEUKOCYTE ESTERASE NEG Leu/uL (Negative); URINE PROTEIN NEGATIVE (NEGATIVE); URINE UROBILINOGEN NORMAL mg/dL (0.2-1.0)
[2018-10-19 11:18] LABS: ALB/GLOB RATIO 1.5 (1.0-2.1); ALBUMIN 5.1 g/dL (3.5-5.0); ALT/SGPT 34 U/L (21-72); AST/SGOT 43 U/L (17-59); BLOOD UREA NITROGEN 18 mg/dL (9-20); CALCIUM 10.2 mg/dl (8.6-10.4); GFR NON-AFRICAN AMERICAN > 60
[2018-10-19 11:26] LABS: BARBITURATES, UR NEGATIVE (NEGATIVE); BENZODIAZEPINES, UR NEGATIVE (NEGATIVE); OPIATES, UR NEGATIVE (NEGATIVE); PHENCYCLIDINE, UR NEGATIVE (NEGATIVE)
[2018-10-19 11:49] LABS: B-TYPE NATRIURETIC PEPTIDE 102 pg/mL (0-450)
--- NOTE | 2018-10-19 12:28 | RAD ---
HISTORY: weakness COMPARISON: Chest x-ray performed 01/19/18 TECHNIQUE: Chest PA and lateral FINDINGS: LUNGS: No focal consolidation. Please note that chest x-ray has limited sensitivity for the detection of pulmonary masses. PLEURA: No significant pleural effusion identified. No definite pneumothorax . CARDIOVASCULAR: Heart size appears within normal limits. No atherosclerotic calcification present. OSSEOUS STRUCTURES: Several right upper lateral and posterior rib deformities re-identified. Degenerative changes of the spine. VISUALIZED UPPER ABDOMEN: Unremarkable. OTHER FINDINGS: None. IMPRESSION: No focal consolidation.
[2018-10-19 13:20] VITALS: BP 151/95; PULSE 86; TEMP 98.2; O2SAT 98
--- NOTE | 2018-10-20 15:32 | CARD ---
APPROVED REPORT Date of service: 10/19/2018 EKG Measurement Heart [id number] <Conclusion> Normal sinus rhythm Normal ECG
== END 2018-10-19 13:47 | disposition home or self-care (01) ==
LOC: C.ER 09:56
DX: G47.00 Insomnia, unspecified (principal); F14.10 Cocaine abuse, uncomplicated